=== PATIENT | female | born 1950 | race Caucasian/White ===

== ENCOUNTER 2017-01-29 15:02 | Emergency (ER) | payer OTHER, MEDICAID ==
[~2017-01-29] VITALS: Wt 47.9 kg
[~2017-01-29 15:02] MED LIST: AMPH30TA9 PO; CYCL-319 PO; HYDR-762 PO; HYDR25TA6 PO; LISI40TA PO
[2017-01-29] MEDS ORDERED: LORAZEPAM 1 MG TAB PO ONE (15:30)
[2017-01-29] MEDS ORDERED: BENA20TA48 PO (16:05)
[2017-01-29] MEDS ORDERED: METO-319 PO (16:05)
--- NOTE | 2017-01-29 16:15 | ERD ---
ER Documentation Chief Complaint Chief Complaint LAST ETOH THIS AM. FEELING SICK AND SHAKEY NO SEIZURE NOTED. ETOH DAILY HPI Patient is a 66-year-old female with alcohol abuse who presents saying she is "detoxing". The patient said that her last alcohol was this morning and that it was vodka and she drinks daily. She has been to the [facility] in the past. Her girlfriend called 911. Upon review of old medical records this is the patient's fourth visit to the ER. Review of the emergency department information exchange system shows visits to 3 separate emergency departments. She does not remember the name of her primary doctor. ROS All systems reviewed and are negative except as per history of present illness. Medications Home Meds Reported Medications Metoprolol Succinate* (Toprol XL*) 50 Mg Tab.er.24h, 50 MG PO DAILY, #30 TAB 01/29/17 Benazepril Hcl* (Benazepril Hcl*) 20 Mg Tablet, 20 MG PO DAILY, #30 TAB 01/29/17 Discontinued Reported Medications Amphet Kzm-Akpffz-C-Amphet (Amphetamine Salts) 30 Mg Tablet, 30 MG PO DAILY, #30 05/26/15 Hydrochlorothiazide* (Hydrochlorothiazide*) 25 Mg Tab, 25 MG PO daily 08/06/12 Lisinopril* (Prinivil*) 40 Mg Tablet, 40 MG PO daily 08/06/12 Discontinued Scripts Cyclobenzaprine Hcl* (Cyclobenzaprine Hcl*) 10 Mg Tablet, 10 MG PO TID, #20 TAB Prov:DARIEL NAIDU PA-C 03/08/15 Hydrocodone Bit-Acetaminophen* ([place]*) 10-325 Mg Tablet, 1 TAB PO Q6 Y for PAIN , #15 TAB Prov:DARIEL NAIDU PA-C 03/08/15 Allergies Allergies: Coded Allergies: No Known Allergy (Unverified , 01/29/17) PMhx/Soc History of Surgery: Yes (ulcers) Hx Cardiac Disorders: Yes (htn) Hx Alcohol Use: Yes (ADMITS TO ALCHOLISM; LAST DRINK THIS MORNING) Hx Substance Use: No Hx Tobacco Use: No Smoking Status: Current every day smoker FmHx Family History: No diabetes Physical Exam Vitals Vital Signs Date Time Temp Pulse Resp B/P Pulse Ox O2 Delivery O2 Flow Rate FiO2 01/29/17 15:07 98.2 115 20 160/91 98 Physical Exam Const: Moderate distress Head: Atraumatic Eyes: Normal Conjunctiva ENT: Normal External Ears, Nose and Mouth. Neck: Full range of motion..~ No meningismus. Resp: Clear to auscultation bilaterally Cardio: Regular rate and rhythm, no murmurs Abd: Soft, non tender, non distended. Normal bowel sounds Skin: No petechiae or rashes Back: No midline or flank tenderness Ext: No cyanosis, or edema Neur: Awake and alert but anxious Psych: Anxious Results 24 hrs Laboratory Tests Test 01/29/17 15:13 Bedside Glucose 92mg/dL Current Medications Medications (Trade) Dose Ordered Sig/Bre Route PRN Reason Start Time Stop Time Status Last Admin Dose Admin Lorazepam (Ativan) 2 mg ONCE ONCE PO 01/29/17 15:30 01/29/17 15:31 DC 01/29/17 15:21 Procedures/MDM EKG read by me: Rate/Rhythm: Sinus tachycardia at a rate of 104 Intervals: Normal Impression: Sinus tachycardia without ischemia Accu-Chek is normal. Patient is a 66-year-old female with alcohol abuse who presents saying she is detoxing. At this point I do not believe she is in acute delirium tremens. She was given Ativan by mouth and she feels better. I did believe that outpatient management is appropriate and we do not currently have inpatient detox available here at the hospital. I will discharge her with a list of the local detox facilities. She can return for any worsening symptoms. The patient understands the plan and is okay for discharge at this time. Departure Diagnosis: Primary Impression: Alcohol withdrawal Complication of substance-induced condition: uncomplicated Qualified Code: F10.230 - Alcohol withdrawal syndrome without complication Additional Impression: Episode of shaking Condition: Fair Patient Instructions: Alcohol Withdrawal Referrals: ALMITA LYLES MD (PCP) Detox facilities Additional Instructions: Call your primary care doctor TOMORROW for an appointment during the next 1-2 days.See the doctor sooner or return here if your condition worsens before your appointment time. AUSTIN CHAPARRO MD Jan 29, 2017 16:15
== END 2017-01-29 16:27 | disposition home or self-care (01) ==
LOC: E/R 15:02
DX: F10.230 Alcohol dependence with withdrawal, uncomplicated (principal); I10 Essential (primary) hypertension; F17.210 Nicotine dependence, cigarettes, uncomplicated; R25.1 Tremor, unspecified
CPT/HCPCS: 82962; 93005

== ENCOUNTER 2017-02-04 16:11 | Inpatient (IN) | payer OTHER ==
[~2017-02-04] VITALS: Ht 152.4 cm; Wt 53.5 kg
[~2017-02-04 16:11] MED LIST changes: -AMPH30TA9 PO; +BENA20TA48 PO; -CYCL-319 PO; -HYDR-762 PO; -HYDR25TA6 PO; -LISI40TA PO; +METO-319 PO
[2017-02-04] MEDS ORDERED: CEFEPIME 2GM/50 ML (PMX) 50 ML IVPB STA (16:26)
[2017-02-04] MEDS ORDERED: HYDROmorphONE 1 MG/ML SYG IV STA (16:26)
[2017-02-04] MEDS ORDERED: SOD CHLORIDE 0.9% 1,000 ML IV STA (16:26)
[2017-02-04] MEDS ORDERED: ONDANSETRON 4 MG INJ IV STA (16:26)
[2017-02-04] MEDS ORDERED: VANCOMYCIN 1 GM (PMX) 250 ML IVPB ONE (16:30)
--- NOTE | 2017-02-04 16:33 | ERD ---
ER Documentation Chief Complaint Chief Complaint right leg, below david pain HPI This is a 66-year-old alcoholic. She is here for pain and swelling and redness in her right leg. The patient states on Monday, 4 days ago, she tried to flick off a spider that had bitten her just below her knee and when she did this she twisted her right ankle. She says since that time she has been unable to bear weight on her right leg is gotten more red and swollen over the past 4 days. She did not hit her head although she has a bruise under her right eye she says that is from a fall 3-4 weeks ago. She is not having any headaches no neck pain does not know if she has had a fever but no chills. She has pain in the right ankle mostly and also pain in the right leg below the knee. There is redness and swelling no dyspnea or shortness of breath. Patient says she has been getting around her apartment by crawling ROS All systems reviewed and are negative except as per history of present illness. Medications Home Meds Reported Medications Metoprolol Succinate* (Toprol XL*) 50 Mg Tab.er.24h, 50 MG PO DAILY, #30 TAB 01/29/17 Benazepril Hcl* (Benazepril Hcl*) 20 Mg Tablet, 20 MG PO DAILY, #30 TAB 01/29/17 Discontinued Reported Medications Amphet Ibr-Evlsnb-Y-Amphet (Amphetamine Salts) 30 Mg Tablet, 30 MG PO DAILY, #30 05/26/15 Hydrochlorothiazide* (Hydrochlorothiazide*) 25 Mg Tab, 25 MG PO daily 08/06/12 Lisinopril* (Prinivil*) 40 Mg Tablet, 40 MG PO daily 08/06/12 Discontinued Scripts Cyclobenzaprine Hcl* (Cyclobenzaprine Hcl*) 10 Mg Tablet, 10 MG PO TID, #20 TAB Prov:DARIEL NAIDU PA-C 03/08/15 Hydrocodone Bit-Acetaminophen* ([place]*) 10-325 Mg Tablet, 1 TAB PO Q6 Y for PAIN , #15 TAB Prov:DARIEL NAIDU PA-C 03/08/15 Allergies Allergies: Coded Allergies: No Known Allergy (Unverified , 02/04/17) PMhx/Soc History of Surgery: Yes (ulcers) Hx Cardiac Disorders: Yes (htn) Hx Miscellaneous Medical Probl: Yes (alcoholic) Hx Alcohol Use: Yes (ADMITS TO ALCHOLISM; LAST DRINK THIS MORNING) Hx Substance Use: No Hx Tobacco Use: No Smoking Status: Never smoker FmHx Family History: No coronary disease Physical Exam Vitals Vital Signs Date Time Temp Pulse Resp B/P Pulse Ox O2 Delivery O2 Flow Rate FiO2 02/04/17 18:38 98.1 99 18 113/75 96 Room Air 2.0 Nasal Cannula 02/04/17 18:03 101 18 99/69 99 Nasal Cannula 2.0 02/04/17 16:23 98.1 115 18 114/56 99 Physical Exam Const: Well-developed, well-nourished Head: Atraumatic, normocephalic Eyes: Normal Conjunctiva, PERRLA, EOMI, normal sclera, no nystagmus, small linear bruise underneath the right eye no swelling ENT: Normal External Ears, Nose and Mouth, moist mucus membranes. Neck: Full range of motion. No meningismus, no lymphadenopathy. Resp: Clear to auscultation bilaterally, no wheezing, rhonchi, rales Cardio: Regular rate and rhythm, no murmurs, S1 S2 present Abd: Soft, non tender x 4, non distended. Normal bowel sounds, no guarding or rebound, no pulsitile abdominal masses or bruits Skin: [There is redness to the entire leg below the knee there is some redness to the distal thigh with sharp demarcation, there is a irregular area or the spider possibly better with a scab at the area just below the knee Back: No midline or flank tenderness Ext: No cyanosis, edema to the leg below the right knee, FROM x 4, normal inspection, neurovascularly intact x 4, the right ankle has no strength at all and on passive movement and has complete instability Neur: Awake and alert, STR 5/5 x 4, sensation intact x 4, no focal findings, cerebellum intact Psych: Normal Mood and Affect Result Diagram: 02/04/17 1625 02/04/17 1625 Results 24 hrs Laboratory Tests Test 02/04/17 16:25 White Blood Count 5.810^3/ul Red Blood Count 2.3410^6/ul Hemoglobin 7.5g/dl Hematocrit 22.8% Mean Corpuscular Volume 97.4fl Mean Corpuscular Hemoglobin 32.1pg Mean Corpuscular Hemoglobin Concent 32.9g/dl Red Cell Distribution Width 15.7% Platelet Count 00932^3/UL Mean Platelet Volume 12.0fl Neutrophils % % Segmented Neutrophils % (Manual) 52% Band Neutrophils % (Manual) 7% Lymphocytes % % Lymphocytes % (Manual) 30% Reactive Lymphocytes % (Manual) 2% Monocytes % % Monocytes % (Manual) 9% Eosinophils % % Basophils % % Nucleated Red Blood Cells % 0.0/100WBC Neutrophils # 10^3/ul Neutrophils # (Manual) 3.010^3/ul Band Neutrophils # 0.410^3/ul Absolute Lymphocytes (Manual) 1.710^3/ul Lymphocytes # 10^3/ul Reactive Lymphocytes # 0.110^3/ul Monocytes # 10^3/ul Absolute Monocytes (Manual) 0.510^3/ul Eosinophils # 10^3/ul Basophils # 10^3/ul Nucleated Red Blood Cells # 10^3/ul Platelet Estimate NORMAL Giant Platelets 1% Prothrombin Time 13.4Sec Prothrombin Time Ratio 1.0 INR International Normalized Ratio 1.02 Activated Partial Thromboplast Time 32.4Sec Sodium Level 138mmol/L Potassium Level 3.7mmol/L Chloride Level 108mmol/L Carbon Dioxide Level 17mmol/L Anion Gap 17 Blood Urea Nitrogen 49mg/dl Creatinine 2.04mg/dl Glucose Level 110mg/dl Calcium Level 8.8mg/dl Total Bilirubin 0.1mg/dl Direct Bilirubin 0.00mg/dl Indirect Bilirubin 0.1mg/dl Aspartate Amino Transf (AST/SGOT) 63IU/L Alanine Aminotransferase (ALT/SGPT) 44IU/L Alkaline Phosphatase 104IU/L Troponin I 0.028ng/ml Total Protein 6.7g/dl Albumin 3.3g/dl Globulin 3.40g/dl Albumin/Globulin Ratio 0.97 Current Medications Medications (Trade) Dose Ordered Sig/Bre Route PRN Reason Start Time Stop Time Status Last Admin Dose Admin Cefepime HCl 50 ml @ 100 mls/hr ONCE STAT IVPB 02/04/17 16:26 02/04/17 16:55 DC Vancomycin HCl 250 ml @ 125 mls/hr ONCE ONCE IVPB 02/04/17 16:30 02/04/17 18:29 DC 02/04/17 16:42 Sodium Chloride (NS) 1,000 ml @ 1,000 mls/hr Q1H STAT IV 02/04/17 16:26 02/04/17 17:25 DC 02/04/17 17:05 Hydromorphone HCl (Dilaudid) 1 mg ONCE STAT IV 02/04/17 16:26 02/04/17 16:30 DC 02/04/17 17:05 Ondansetron HCl 4 mg 4 mg ONCE STAT IV 02/04/17 16:26 02/04/17 16:30 DC 02/04/17 17:04 Sodium Chloride (NS) 1,000 ml @ 80 mls/hr [id number] IV 02/04/17 18:40 02/05/17 07:09 Ondansetron HCl (Zofran Inj) 4 mg BRIDGE ORDER PRN IV NAUSEA AND/OR VOMITING 02/04/17 19:00 02/05/17 18:59 Acetaminophen (Tylenol Tab) 650 mg ER BRIDGE PRN PO MILD PAIN/FEVER 02/04/17 19:00 02/05/17 18:59 Procedures/MDM PROCEDURE: XR Ankle. CLINICAL INDICATION: 66-year of age, female. Trauma.. TECHNIQUE: Three views of the right ankle. COMPARISON: None available. FINDINGS: There is an acute comminuted obliquely oriented fracture of the distal fibula that likely involves the distal tibiofibular syndesmosis. Fracture is displaced posterior greater than a full shaft width. There is a comminuted fracture of the midshaft of the tibia with posterior displacement full shaft width.. Alignment of the ankle mortise is anatomic. There is a contour irregularity of the lateral talar dome and there is a bone fragment at the lateral aspect of the talus that may signify talar fracture. Evaluation is limited on x-ray. There is extensive soft tissue swelling. There is calcific debris over the lateral malleolus representing bone fragments.. IMPRESSION: 1. Mild contour irregularity of the lateral talar dome and bone fragment at the lateral aspect of the talus may be due to a talar fracture that is not well evaluated on x-ray. Recommend further evaluation with ankle CT. 2. Oblique comminuted fractures of the distal fibula and mid tibial shaft. Distal fibular fracture likely involves the distal tibiofibular syndesmosis. RPTAT: HCTS Physician Grant Date Time Electronically viewed and signed by Physician Grant on 02/04/2017 18: 03 CS/ CC: BRIANNE CYR DO PROCEDURE: Portable chest x-ray. CLINICAL INDICATION: 66-year of age, female. Possible sepsis. TECHNIQUE: Portable AP view of the chest. COMPARISON: None available. FINDINGS: Tortuous aorta. Normal heart size. Prominent interstitial markings may indicate mild pulmonary venous congestion. Lungs are otherwise clear. Negative for pleural effusion or pneumothorax. Curvature of the lower thoracic spine convex left. IMPRESSION: Prominent interstitial markings may indicate mild pulmonary venous congestion. Lungs are otherwise clear. RPTAT: HCTS Physician Grant Date Time Electronically viewed and signed by Physician Grant on 02/04/2017 18: 06 CS/ CC: BRIANNE CYR DO PROCEDURE: XR Knee. CLINICAL INDICATION: 66 years of age, female. Right knee pain. TECHNIQUE: 2 views of the right knee. COMPARISON: None available. FINDINGS: Negative for evidence of acute fracture at the knee. Fractures of the midshaft of the tibia and fibula are incompletely imaged. Normal alignment. There is mild tricompartment osteoarthritis with joint space narrowing and osteophytes in all 3 compartments. There is a small knee joint effusion. There is soft tissue swelling that is greatest over the lateral aspect of the knee. IMPRESSION: Negative for evidence of acute fracture at the knee. Fractures of the mid shafts of the tibia and fibula are incompletely imaged. Please see tib fib x- rays reported separately. Mild tricompartment osteoarthritis with small knee joint effusion. RPTAT: HCTS Physician Grant Date Time Electronically viewed and signed by Physician Grant on 02/04/2017 17: 59 CS/ CC: BRIANNE CYR DO PROCEDURE: XR Tibia and Fibula. CLINICAL INDICATION: 66-year of age, female. Pain. Trauma. TECHNIQUE: AP and lateral views of the right tibia and fibula. COMPARISON: None available. FINDINGS: There is an acute obliquely oriented fracture of the mid tibial shaft with posterior displacement 1/2 shaft width and mild varus angulation. There is a comminuted obliquely oriented fracture of the distal fibula with medial and posterior displacement a full shaft width.. Please see knee and ankle x-rays reported separately. There is soft tissue swelling. IMPRESSION: Displaced fractures of the tibia and fibula as described. RPTAT: HCTS Physician Grant Date Time Electronically viewed and signed by Physician Grant on 02/04/2017 18: 05 CS/ CC: BRIANNE CYR DO PROCEDURE: US Lower extremity Venous. CLINICAL INDICATION: Right leg edema TECHNIQUE: Multiple sonographic images of the right lower extremity deep venous system was obtained utilizing grayscale, color-flow, compressive sonography and doppler imaging with augmentation. The images were reviewed on a PACS workstation. COMPARISON: None. FINDINGS: There is normal compressibility and flow within the right common femoral, femoral, posterior tibial, peroneal and popliteal veins. RPTAT: AA IMPRESSION: No sonographic evidence for deep venous thrombosis. .Mulugeta Lentz MD, Date Time Electronically viewed and signed by .Mulugeta Lentz MD, on 02/04/2017 17: 00 .S/ CC: BRIANNE CYR DO Spoke with Dr. Edmondson of orthopedics who will be consulting on the case. We will admit the patient for cellulitis of the right leg with a tib-fib fracture with anemia requiring blood transfusion as well as volume depletion with acidosis and prerenal azotemia. Spoke with Dr. Mcknight of panel and reviewed the case for admission Departure Diagnosis: Primary Impression: Cellulitis of right leg Additional Impressions: Fracture of right tibia and fibula Encounter type: initial encounter Fracture type: closed Qualified Code: S82.201A - Closed fracture of right tibia and fibula, initial encounter Anemia Anemia type: unspecified type Qualified Code: D64.9 - Anemia, unspecified type Dehydration Condition: Stable BRIANNE CYR DO Feb 04, 2017 16:33
[2017-02-04 16:43] LABS: HEMATOCRIT 22.8 % (37.0-47.0); HEMOGLOBIN 7.5 g/dl (12.0-16.0); MEAN CORPUSCULAR HEMOGLOBIN 32.1 pg (29.0-33.0); MEAN CORPUSCULAR HGB CONC 32.9 g/dl (32.0-37.0); MEAN CORPUSCULAR VOLUME 97.4 fl (82.0-101.0); PLATELET COUNT 166 10^3/UL (140-415); RED BLOOD COUNT 2.34 10^6/ul (4.20-5.40); RED CELL DISTRIBUTION WIDTH 15.7 % (11.5-14.5); WHITE BLOOD COUNT 5.8 10^3/ul (4.8-10.8)
[2017-02-04 16:47] LABS: POSITIVE DIFF @See below
[2017-02-04 16:58] LABS: INR 1.02; PARTIAL THROMBOPLASTIN TIME 32.4 Sec (25.0-35.0); PROTIME 13.4 Sec (12.2-14.2)
[2017-02-04 17:00] LABS: ALBUMIN 3.3 g/dl (3.3-4.9); ALBUMIN/GLOBULIN RATIO 0.97; BILIRUBIN,INDIRECT 0.1 mg/dl (0-1.1); BILIRUBIN,TOTAL 0.1 mg/dl (0.2-1.3); CALCIUM 8.8 mg/dl (8.4-10.2); CREATININE 2.04 mg/dl (0.44-1.00); POTASSIUM 3.7 mmol/L (3.5-5.1); TOTAL PROTEIN 6.7 g/dl (6.1-8.1)
--- NOTE | 2017-02-04 17:00 | RADRPT ---
PROCEDURE: US Lower extremity Venous. CLINICAL INDICATION: Right leg edema TECHNIQUE: Multiple sonographic images of the right lower extremity deep venous system was obtaine d utilizing grayscale, color-flow, compressive sonography and doppler imaging with augmentation. Th e images were reviewed on a PACS workstation. COMPARISON: None. FINDINGS: There is normal compressibility and flow within the right common femoral, femoral, posterior tibial, peroneal and popliteal veins. RPTAT: AA IMPRESSION: No sonographic evidence for deep venous thrombosis. .Mulugeta Lentz MD, MD Date Time Electronically viewed and signed by .Mulugeta Lentz MD, MD on 02/04/2017 17:00 .S/
[2017-02-04 17:04] LABS: GIANT THROMBO% (M) 1 % (0-0); MONOCYTES % (M) 9 % (0-11); PLATELET ESTIMATE NORMAL; REACTIVE LYMPHOCYTES% (M) 2 % (0-0)
[2017-02-04 17:12] LABS: TROPONIN-I 0.028 ng/ml (0.00-0.12)
--- NOTE | 2017-02-04 18:00 | RADRPT ---
PROCEDURE: XR Knee. CLINICAL INDICATION: 66 years of age, female. Right knee pain. TECHNIQUE: 2 views of the right knee. COMPARISON: None available. FINDINGS: Negative for evidence of acute fracture at the knee. Fractures of the midshaft of the tibia and fibu la are incompletely imaged. Normal alignment. There is mild tricompartment osteoarthritis with joint space narrowing and osteophytes in all 3 comp artments. There is a small knee joint effusion. There is soft tissue swelling that is greatest over the lateral aspect of the knee. IMPRESSION: Negative for evidence of acute fracture at the knee. Fractures of the mid shafts of the tibia and fi bula are incompletely imaged. Please see tib fib x-rays reported separately. Mild tricompartment osteoarthritis with small knee joint effusion. RPTAT: HCTS Physician Grant Date Time Electronically viewed and signed by Orville Dee Physician on 02/04/2017 17:59 /
--- NOTE | 2017-02-04 18:04 | RADRPT ---
PROCEDURE: XR Ankle. CLINICAL INDICATION: 66-year of age, female. Trauma.. TECHNIQUE: Three views of the right ankle. COMPARISON: None available. FINDINGS: There is an acute comminuted obliquely oriented fracture of the distal fibula that likely involves t he distal tibiofibular syndesmosis. Fracture is displaced posterior greater than a full shaft width. There is a comminuted fracture of the midshaft of the tibia with posterior displacement full shaft width.. Alignment of the ankle mortise is anatomic. There is a contour irregularity of the lateral talar dom e and there is a bone fragment at the lateral aspect of the talus that may signify talar fracture. Evaluation is limited on x-ray. There is extensive soft tissue swelling. There is calcific debris over the lateral malleolus represe nting bone fragments.. IMPRESSION: 1. Mild contour irregularity of the lateral talar dome and bone fragment at the lateral aspect of t he talus may be due to a talar fracture that is not well evaluated on x-ray. Recommend further evalu ation with ankle CT. 2. Oblique comminuted fractures of the distal fibula and mid tibial shaft. Distal fibular fracture l ikely involves the distal tibiofibular syndesmosis. RPTAT: HCTS Physician Grant Date Time Electronically viewed and signed by Physician Grant on 02/04/2017 18:03 /
--- NOTE | 2017-02-04 18:05 | RADRPT ---
PROCEDURE: XR Tibia and Fibula. CLINICAL INDICATION: 66-year of age, female. Pain. Trauma. TECHNIQUE: AP and lateral views of the right tibia and fibula. COMPARISON: None available. FINDINGS: There is an acute obliquely oriented fracture of the mid tibial shaft with posterior displacement 1/ 2 shaft width and mild varus angulation. There is a comminuted obliquely oriented fracture of the di stal fibula with medial and posterior displacement a full shaft width.. Please see knee and ankle x-rays reported separately. There is soft tissue swelling. IMPRESSION: Displaced fractures of the tibia and fibula as described. RPTAT: HCTS Physician Grant Date Time Electronically viewed and signed by Physician Grant on 02/04/2017 18:05 /
--- NOTE | 2017-02-04 18:07 | RADRPT ---
PROCEDURE: Portable chest x-ray. CLINICAL INDICATION: 66-year of age, female. Possible sepsis. TECHNIQUE: Portable AP view of the chest. COMPARISON: None available. FINDINGS: Tortuous aorta. Normal heart size. Prominent interstitial markings may indicate mild pulmonary venous congestion. Lungs are otherwise c lear. Negative for pleural effusion or pneumothorax. Curvature of the lower thoracic spine convex left. IMPRESSION: Prominent interstitial markings may indicate mild pulmonary venous congestion. Lungs are otherwise c lear. RPTAT: HCTS Physician Grant Date Time Electronically viewed and signed by Orville Dee Physician on 02/04/2017 18:06 CS/
[2017-02-04] MEDS ORDERED: SOD CHLORIDE 0.9% 1,000 ML IV SCH (18:40)
[2017-02-04] MEDS ORDERED: ONDANSETRON 4 MG INJ IV PRN ×2 (19:00→22:00)
[2017-02-04] MEDS ORDERED: ACETAMINOPHEN 325 MG TAB PO PRN (19:00)
[2017-02-04 19:31] VITALS: TEMP 98.1
[2017-02-04 20:35] VITALS: BP 107/59; RESP 19
[2017-02-04] MEDS: SOD CHLORIDE 0.9% 1,000 ML IV SCH (21:32)
[2017-02-04 21:44] VITALS: Ht 152.4 cm; Wt 53.5 kg
[2017-02-04 21:56] VITALS: BP 101/59; PULSE 115; RESP 19
[2017-02-04] MEDS ORDERED: VANCOMYCIN IV PER PHARMACY XX SCH (22:00)
[2017-02-04] MEDS: morphine 2 MG INJ IV PRN (22:27)
[2017-02-05 02:16] VITALS: BP 96/53; RESP 18
[2017-02-05] MEDS: morphine 2 MG INJ IV PRN ×4 (02:35→18:04)
[2017-02-05] MEDS: ZOLPIDEM 5 MG TAB PO PRN (05:29)
[2017-02-05] MEDS: ACETAMINOPHEN 325 MG TAB PO PRN (06:29)
[2017-02-05 07:43] LABS: BASOPHILS % 0.2 % (0.0-2.0); EOSINOPHILS # 0.1 10^3/ul (0.0-0.5); EOSINOPHILS % 2.5 % (0.0-7.0); HEMATOCRIT 29.4 % (37.0-47.0); HEMOGLOBIN 10.1 g/dl (12.0-16.0); LYMPHOCYTES # 0.8 10^3/ul (0.8-2.9); LYMPHOCYTES % 17.4 % (15.0-51.0); MEAN CORPUSCULAR HEMOGLOBIN 32.2 pg (29.0-33.0); MEAN CORPUSCULAR HGB CONC 34.4 g/dl (32.0-37.0); MEAN CORPUSCULAR VOLUME 93.6 fl (82.0-101.0); MEAN PLATELET VOLUME 11.9 fl (7.4-10.4); MONOCYTE # 0.7 10^3/ul (0.3-0.9); NEUTROPHIL # 2.8 10^3/ul (1.6-7.5); NEUTROPHILS % 64.4 % (39.0-77.0); PLATELET COUNT 178 10^3/UL (140-415); RED BLOOD COUNT 3.14 10^6/ul (4.20-5.40); RED CELL DISTRIBUTION WIDTH 16.1 % (11.5-14.5); WHITE BLOOD COUNT 4.3 10^3/ul (4.8-10.8)
[2017-02-05 07:46] LABS: POSITIVE DIFF @See below
[2017-02-05 07:57] VITALS: BP 140/66; RESP 17
[2017-02-05 07:59] LABS: IRON 30 ug/dl (35-150)
[2017-02-05 08:01] LABS: ALBUMIN 2.9 g/dl (3.3-4.9); ALBUMIN/GLOBULIN RATIO 1.03; BILIRUBIN,INDIRECT 0.5 mg/dl (0-1.1); BILIRUBIN,TOTAL 0.5 mg/dl (0.2-1.3); CALCIUM 7.8 mg/dl (8.4-10.2); CHOL/HDL RATIO 4.9 RATIO; CREATININE 1.5 mg/dl (0.44-1.00); MAGNESIUM 1.6 mg/dl (1.7-2.5); POTASSIUM 3.6 mmol/L (3.5-5.1); TOTAL PROTEIN 5.7 g/dl (6.1-8.1)
[2017-02-05 08:09] LABS: TOTAL IRON BINDING CAPACITY 194 ug/dl (241-421)
[2017-02-05 08:32] LABS: THYROID STIMULATING HORMONE 1.36 MIU/L (0.465-4.680)
[2017-02-05 08:52] LABS: ADD UMIC YES; UR ASCORBIC ACID NEGATIVE (NEGATIVE); UR BACTERIA FEW /HPF (NONE SEEN); UR BILIRUBIN (Dip) NEGATIVE (NEGATIVE); UR BLOOD (Dip) 1+ mg/dL (NEGATIVE); UR CLARITY SLIGHTLY CLOUDY (CLEAR); UR COLOR YELLOW (YELLOW); UR GLUCOSE (Dip) NEGATIVE (NEGATIVE); UR KETONES (Dip) NEGATIVE (NEGATIVE); UR LEUKOCYTE ESTERASE (Dip) NEGATIVE Leu/ul (NEGATIVE); UR NITRITE (Dip) NEGATIVE (NEGATIVE); UR RBC 3 /HPF (0-5); UR SPECIFIC GRAVITY (Dip) 1.008 (1.003-1.030); UR TOTAL PROTEIN (Dip) NEGATIVE (NEGATIVE); UR UROBILINOGEN (Dip) NEGATIVE (NEGATIVE)
[2017-02-05] MEDS ORDERED: CEFEPIME 1GM/50 ML (PMX) 50 ML IVPB SCH (09:00)
[2017-02-05] MEDS ORDERED: LORAZEPAM 2 MG INJ IV PRN (10:00)
[2017-02-05] MEDS: SOD CHLORIDE 0.9% 1,000 ML IV SCH (10:02)
--- NOTE | 2017-02-05 10:20 | HP ---
Date/Time of Note Date/Time of Note DATE: 02/05/17 TIME: 09:49 Assessment/Plan VTE Prophylaxis VTE Prophylaxis Intervention: SCD's Assessment/Plan Chief Complaint/Hosp Course This is a 58-year-old female being admitted to the [facility] floor for: #1 Acute fractures of the right tibial and fibula: At the current time keep right lower extremity casted/wrapped. Will provide IV pain medication for pain control. Keep patient n.p.o. Will obtain an echocardiogram in the a.m. to assess heart function for preop purposes for surgery. Orthopedic surgery has been consulted via the ED. #2 Right lower semi-cellulitis: Patient reports that she noticed a spider biting her bug. At the current time I was not able to examine the site of the bite as her right lower extremity is casted/wrapped. She did show me a picture of her right lower extremity on her phone which did show extensive erythema and redness and swelling. Right now we will continue vancomycin and cefepime. Will await blood cultures. #3 normocytic anemia: Patient received 2 PRBC transfusions in the ED. Will check iron studies. Will check fecal occult blood. This also could be secondary to patient's underlying alcohol use. #4History of alcohol use: Will check ethanol level and urine drug screen. Will put as needed Ativan on board. May need Librium. #5 acute kidney injury: This likely could be prerenal in etiology secondary to mild dehydration. At the current time will provide IV fluid resuscitation with normal saline. Will continue on her renal function. May need additional workup regarding patient's renal function during the hospital stay. #6 hypertension: We will resume home medications as indicated. At the current time will hold off on them secondary to concern for hypotension #7 DVT GI prophylaxis: We will provide SCD on the left lower cavity., No GI plaques indicated at this time. Further treatment strategy will be implemented as per the clinical course Problems: HPI/ROS Admit Date/Time Admit Date/Time Feb 04, 2017 at 18:41 Hx of Present Illness Complaint: Right leg swelling and redness This is a 66-year-old alcoholic. She is here for pain and swelling and redness in her right leg. The patient states on Monday, 4 days ago, she tried to flick off a spider that had bitten her just below her knee and when she did this she twisted her right ankle. She says since that time she has been unable to bear weight on her right leg is gotten more red and swollen over the past 4 days. She did not hit her head although she has a bruise under her right eye she says that is from a fall 3-4 weeks ago. She is not having any headaches no neck pain does not know if she has had a fever but no chills. She has pain in the right ankle mostly and also pain in the right leg below the knee. There is redness and swelling no dyspnea or shortness of breath. Patient says she has been getting around her apartment by crawling. Allergies: NKDA Medications: See Jun Const: As per HPI Eyes : No pain discharge or redness or change in visual acuity ENT: No pain, sore throat, congestion, congestion, dysphagia or discharge Respiratory: No shortness of breath, cough, sputum, wheezing, or pleuritic pain Cardiovascular: No chest pain, palpitation, PND, or edema GI : no change in appetite, abdominal pain, nausea, vomiting, diarrhea, constipation, or change in the color his stool Genitourinary: No dysuria, hematuria, flank pain , discharge or CVA tenderness Musculoskeletal: As per HPI Skin: As per HPI Neuro: No headache, dizziness, syncope, seizure, focal weakness Endocrine: No polyuria, polydipsia, temperature intolerance Psych: No hallucination, depression, anxiety or suicidal ideation PMH/Family/Social Past Medical History hypertension, thyroid disorder, osteoporosis, Past Surgical History Partial thyroidectomy, stomach surgery Family History Significant Family History: hypertension Social History Alcohol Use: occasionally Smoking Status: Never smoker Drug Use: none Exam/Review of Systems Vital Signs Vitals Vital Signs Date Time Temp Pulse Resp B/P Pulse Ox O2 Delivery O2 Flow Rate FiO2 02/05/17 07:57 99.4 113 17 140/66 97 02/04/17 19:31 Room Air 2.0 Nasal Cannula Intake and Output 02/04/17 02/04/17 02/05/17 15:00 23:00 07:00 Intake Total 640 ml Balance 640 ml Exam Exam General: Patient is lying in bed in no acute distress she is very pleasant. HEENT: Atraumatic, normocephalic. The pupils are equal, round and reactive. Extraocular motor are intact Neck: Supple with full range of motion. No rigidity or meningismus Chest: Nontender Lungs: Clear to auscultation bilaterally no crackles rales or wheezing Heart: Normal S1-S2, Regular rhythm and rate. No murmur, S3, or S4 Abdomen: Soft , nontender, nondistended , bowel sounds are present. No guarding no rebound tenderness , No masses or organomegaly. No costovertebral temporal angle mass Extremities: Right lower extremity is currently currently wrapped, there is movement in the toes bilaterally. Neurologic: Normal mental status, speech normal, cranial nerves II through XII are intact, motor and sensory are intact, no focal weakness Vascular: 2+ distal pulses in bilateral lower cavities Skin: Significant portion of the right lower extremity is currently wrapped secondary to the patient's acute fracture, there does not appear to be any redness at this point at the anterior upper thigh nor at the level of the toes of the right lower extremity, sensation is intact Additional Comments PROCEDURE: XR Ankle. CLINICAL INDICATION: 66-year of age, female. Trauma.. TECHNIQUE: Three views of the right ankle. COMPARISON: None available. FINDINGS: There is an acute comminuted obliquely oriented fracture of the distal fibula that likely involves the distal tibiofibular syndesmosis. Fracture is displaced posterior greater than a full shaft width. There is a comminuted fracture of the midshaft of the tibia with posterior displacement full shaft width.. Alignment of the ankle mortise is anatomic. There is a contour irregularity of the lateral talar dome and there is a bone fragment at the lateral aspect of the talus that may signify talar fracture. Evaluation is limited on x-ray. There is extensive soft tissue swelling. There is calcific debris over the lateral malleolus representing bone fragments.. IMPRESSION: 1. Mild contour irregularity of the lateral talar dome and bone fragment at the lateral aspect of the talus may be due to a talar fracture that is not well evaluated on x-ray. Recommend further evaluation with ankle CT. 2. Oblique comminuted fractures of the distal fibula and mid tibial shaft. Distal fibular fracture likely involves the distal tibiofibular syndesmosis. RPTAT: HCTS Physician Grant Date Time Electronically viewed and signed by Physician Grant on 02/04/2017 18: 03 CS/ CC: BRIANNE CYR DO PROCEDURE: Portable chest x-ray. CLINICAL INDICATION: 66-year of age, female. Possible sepsis. TECHNIQUE: Portable AP view of the chest. COMPARISON: None available. FINDINGS: Tortuous aorta. Normal heart size. Prominent interstitial markings may indicate mild pulmonary venous congestion. Lungs are otherwise clear. Negative for pleural effusion or pneumothorax. Curvature of the lower thoracic spine convex left. IMPRESSION: Prominent interstitial markings may indicate mild pulmonary venous congestion. Lungs are otherwise clear. RPTAT: HCTS Orville Dee Physician Date Time Electronically viewed and signed by Physician Grant on 02/04/2017 18: 06 CS/ CC: BRIANNE CYR DO PROCEDURE: XR Knee. CLINICAL INDICATION: 66 years of age, female. Right knee pain. TECHNIQUE: 2 views of the right knee. COMPARISON: None available. FINDINGS: Negative for evidence of acute fracture at the knee. Fractures of the midshaft of the tibia and fibula are incompletely imaged. Normal alignment. There is mild tricompartment osteoarthritis with joint space narrowing and osteophytes in all 3 compartments. There is a small knee joint effusion. There is soft tissue swelling that is greatest over the lateral aspect of the knee. IMPRESSION: Negative for evidence of acute fracture at the knee. Fractures of the mid shafts of the tibia and fibula are incompletely imaged. Please see tib fib x- rays reported separately. Mild tricompartment osteoarthritis with small knee joint effusion. RPTAT: HCTS Physician Grant Date Time Electronically viewed and signed by Orville Dee Physician on 02/04/2017 17: 59 CS/ CC: BRIANNE CYR DO PROCEDURE: XR Tibia and Fibula. CLINICAL INDICATION: 66-year of age, female. Pain. Trauma. TECHNIQUE: AP and lateral views of the right tibia and fibula. COMPARISON: None available. FINDINGS: There is an acute obliquely oriented fracture of the mid tibial shaft with posterior displacement 1/2 shaft width and mild varus angulation. There is a comminuted obliquely oriented fracture of the distal fibula with medial and posterior displacement a full shaft width.. Please see knee and ankle x-rays reported separately. There is soft tissue swelling. IMPRESSION: Displaced fractures of the tibia and fibula as described. RPTAT: HCTS Orville Dee Physician Date Time Electronically viewed and signed by Orville Dee Physician on 02/04/2017 18: 05 CS/ CC: BRIANNE CYR DO PROCEDURE: US Lower extremity Venous. CLINICAL INDICATION: Right leg edema TECHNIQUE: Multiple sonographic images of the right lower extremity deep venous system was obtained utilizing grayscale, color-flow, compressive sonography and doppler imaging with augmentation. The images were reviewed on a PACS workstation. COMPARISON: None. FINDINGS: There is normal compressibility and flow within the right common femoral, femoral, posterior tibial, peroneal and popliteal veins. RPTAT: AA IMPRESSION: No sonographic evidence for deep venous thrombosis. .Mulugeta Lentz MD, Date Time Electronically viewed and signed by .Mulugeta Lentz MD, MD on 02/04/2017 17: 00 .S/ CC: BRIANNE CYR DO Labs Result Diagram: 02/05/17 0702/05/17 0721 Medications Medications Current Medications Sodium Chloride (NS) 1,000 ml @ 80 mls/hr [id number] IV Last administered on 02/04 21:32; Admin Dose 80 MLS/HR; Start 02/04/17 at 21:32 Ondansetron HCl (Zofran Inj) 4 mg Q6H PRN IV NAUSEA AND/OR VOMITING; Start 02/04/17 at 22:00 Acetaminophen (Tylenol Tab) 650 mg Q6H PRN PO PAIN LEVEL 1-3 OR FEVER Last administered on 02/05/17 06:29; Admin Dose 650 MG; Start 02/04/17 at 22:00 Morphine Sulfate 2 mg 2 mg Q4H PRN IV SEVERE PAIN LEVEL 7-10 Last administered on 02/05/17 06:46; Admin Dose 2 MG; Start 02/04/17 at 22:00 Vancomycin HCl/ Dextrose/Water (Vancocin/D5W) 150 ml @ 75 mls/hr Q48H IVPB ; Start 02/06/17 at 17:00 Zolpidem Tartrate 5 mg 5 mg HS PRN PO INSOMNIA Last administered on 02/05/17 05:29; Admin Dose 5 MG; Start 02/05/17 at 05:30 Cefepime HCl (Maxipime 1gm/50 ml (Pmx)) 50 ml @ 100 mls/hr DAILY IVPB Last administered on 02/05/17 08:21; Admin Dose 100 MLS/HR; Start 02/05/17 at 09:00 Miscellaneous Information Patients own medicat... BID@ XX ; Start 02/05/17 at 10:00 SHAWNEE GALVEZ Feb 05, 2017 09:59
[2017-02-05 10:59] LABS: POST-TRANSFUSION BILIRUBIN 0.4 mg/dl
[2017-02-05 13:37] VITALS: BP 146/77; PULSE 111; RESP 16
--- NOTE | 2017-02-05 14:18 | RADRPT ---
Echocardiogram Report Patient Name: MOSHE CHENEY Gender: Female Date: 1950 Study Date: 05-Feb-2017 [employer]ment: LAURA Location: 2247 Ref. Physician: SHAWNEE GALVEZ Quality: Good Procedures: Transthoracic echocardiogram with complete 2D, M-Mode, and doppler examination. Indications: Pre-op. 2D/M Mode Doppler Measurement Value Normal Ranges Measurement Value Normal Ranges AoR Diam MM 3.0 cm MAURA Vmax 2.0 cm2 ACS MM 1.8 cm MAURA VTI 2.0 cm2 LA/Ao MM 1.1 AV Peak Anthony 1.5 m/sec LA Dimen MM 3.2 cm AV Peak PG 9.5 mmHg LVIDd 2D 3.7 3.5 - 5.6 cm LVOT Peak Anthony 1.1 m/sec LVIDs 2D 2.6 2.1 - 4.1 cm LVOT Peak PG 5.2 mmHg LVPWd 2D 1.1 0.6 - 1.1 cm MV E Peak Anthony 0.9 m/sec IVSd 2D 1.1 0.6 - 1.1 cm MV A Peak Anthony 0.9 m/sec EDV 2D 59.3 cm3 MV E/A 1.0 ESV 2D 16.6 cm3 MV Decel Time 238 msec LVOT Diam 1.8 cm MV Decel [place] 4 MV E/A 1.0 Findings Left Ventricle: Normal left ventricular systolic function. Lower limits of normal systolic function. Normal left ventricular wall thickness. Ejection fraction is visually estimated at 60 %. Abnormal Diastolic Function. Right Ventricle: Normal right ventricular size. Normal right ventricular systolic function. Left Atrium: The left atrium is normal in size. Right Atrium: The right atrium is normal in size. Mitral Valve: Normal appearance of the mitral valve. Mitral valve leaflets appear mildly thickened. Mild mitral annular calcification. Trace mitral regurgitation. Aortic Valve: Normal appearance of the aortic valve. No significant aortic stenosis or insufficiency. Tricuspid Valve: Normal appearance of the tricuspid valve. Normal appearance and function of the tricuspid valve with trace physiologic regurgitation. Unable to obtain RVSP due to minimal presence of tricuspid regurgitation. Pulmonic Valve: Normal pulmonic valve appearance. There is trace pulmonic regurgitation. Pericardium: Normal pericardium with no significant pericardial effusion. Aorta: Normal aortic root. IVC: Normal size and normal respiratory collapse consistent with normal right atrial pressure. Conclusions 1.Normal left ventricular systolic function. Lower limits of normal systolic function. Normal left ventricular wall thickness. Ejection fraction is visually estimated at 60 %. Abnormal Diastolic Function. 2.Normal right ventricular size. Normal right ventricular systolic function. 3.Normal appearance of the mitral valve. Mitral valve leaflets appear mildly thickened. Mild mitral annular calcification. Trace mitral regurgitation. 4.Normal appearance of the aortic valve. No significant aortic stenosis or insufficiency. 5.Normal appearance of the tricuspid valve. Normal appearance and function of the tricuspid valve with trace physiologic regurgitation. Unable to obtain RVSP due to minimal presence of tricuspid regurgitation. 6.Normal pericardium with no significant pericardial effusion. Electronically Signed By: Toi Salazar 05-Feb-2017 14:17:44 -0800 Patient Name: MOSHE CHENEY Study Date: 05-Feb-2017 [id number]
--- NOTE | 2017-02-05 15:45 | PN ---
Date/Time of Note Date/Time of Note DATE: 02/05/17 TIME: 15:44 Assessment/Plan VTE Prophylaxis VTE Prophylaxis Intervention: LMWH Lines/Catheters IV Catheter Type (from Nrs): Peripheral IV Subjective 24 Hr Interval Summary Free Text/Dictation Dr Edmondson to operate tomorrow Patient is medically optimized for vital surgery Exam/Review of Systems Vital Signs Vitals Vital Signs Date Time Temp Pulse Resp B/P Pulse Ox O2 Delivery O2 Flow Rate FiO2 02/05/17 13:37 98.9 111 16 146/77 99 Room Air 02/04/17 19:31 2.0 Intake and Output 02/04/17 02/04/17 02/05/17 15:00 23:00 07:00 Intake Total 640 ml Balance 640 ml Results Result Diagram: 02/05/1772002/05/17720 Results 24 hrs Laboratory Tests Test 02/04/17 16:25 02/05/17 07:21 02/05/17 07:25 02/05/17 08:30 White Blood Count 5.8 # 4.3 #L Red Blood Count 2.34 #L 3.14 #L Hemoglobin 7.5 #L 10.1 #L Hematocrit 22.8 #L 29.4 #L Mean Corpuscular Volume 97.4 93.6 Mean Corpuscular Hemoglobin 32.1 32.2 Mean Corpuscular Hemoglobin Concent 32.9 34.4 Red Cell Distribution Width 15.7 H 16.1 H Platelet Count 166 178 Mean Platelet Volume 12.0 #H 11.9 H Neutrophils % 64.4 Segmented Neutrophils % (Manual) 52 Band Neutrophils % (Manual) 7 H Lymphocytes % 17.4 Lymphocytes % (Manual) 30 Reactive Lymphocytes % (Manual) 2 H Monocytes % 15.0 H Monocytes % (Manual) 9 Eosinophils % 2.5 Basophils % 0.2 Nucleated Red Blood Cells % 0.0 0.0 Neutrophils # 2.8 Neutrophils # (Manual) 3.0 Band Neutrophils # 0.4 Absolute Lymphocytes (Manual) 1.7 Lymphocytes # 0.8 Reactive Lymphocytes # 0.1 H Monocytes # 0.7 Absolute Monocytes (Manual) 0.5 Eosinophils # 0.1 Basophils # 0.0 Nucleated Red Blood Cells # 0.0 Platelet Estimate NORMAL Giant Platelets 1 H Prothrombin Time 13.4 Prothrombin Time Ratio 1.0 INR International Normalized Ratio 1.02 Activated Partial Thromboplast Time 32.4 Sodium Level 138 143 Potassium Level 3.7 3.6 Chloride Level 108 113 H Carbon Dioxide Level 17 L 18 L Anion Gap 17 H 16 Blood Urea Nitrogen 49 H 33 #H Creatinine 2.04 H 1.50 H Glucose Level 110 93 Calcium Level 8.8 7.8 L Total Bilirubin 0.1 L 0.5 Direct Bilirubin 0.00 0.00 Indirect Bilirubin 0.1 0.5 Aspartate Amino Transf (AST/SGOT) 63 H 46 Alanine Aminotransferase (ALT/SGPT) 44 34 Alkaline Phosphatase 104 90 Troponin I 0.028 Total Protein 6.7 5.7 #L Albumin 3.3 2.9 L Globulin 3.40 H 2.80 Albumin/Globulin Ratio 0.97 1.03 Hemoglobin A1c 4.8 Osmolality 294 Magnesium Level 1.6 L Ferritin 121.0 Lactate Dehydrogenase 568 Triglycerides Level 336 H Cholesterol Level 199 LDL Cholesterol, Calculated 92 HDL Cholesterol 40 Cholesterol/HDL Ratio 4.9 Thyroid Stimulating Hormone (TSH) 1.360 Ethyl Alcohol Level < 10.0 Iron Level 30 L Total Iron Binding Capacity 194 L Percent Iron Saturation 15 L Urine Color YELLOW Urine Clarity SLIGHTLY CLOUDY A Urine pH 6.0 Urine Specific [place] 1.008 Urine Ketones NEGATIVE Urine Nitrite NEGATIVE Urine Bilirubin NEGATIVE Urine Urobilinogen NEGATIVE Urine Leukocyte Esterase NEGATIVE Urine Microscopic RBC 3 Urine Microscopic WBC 3 Urine Bacteria FEW A Urine Hemoglobin 1+ H Urine Osmolality 225 L Urine Glucose NEGATIVE Urine Total Protein NEGATIVE Medications Medications Current Medications Ondansetron HCl (Zofran Inj) 4 mg Q6H PRN IV NAUSEA AND/OR VOMITING; Start 02/04/17 at 22:00 Acetaminophen (Tylenol Tab) 650 mg Q6H PRN PO PAIN LEVEL 1-3 OR FEVER Last administered on 02/05/17 06:29; Admin Dose 650 MG; Start 02/04/17 at 22:00 Morphine Sulfate (morphine) 2 mg Q4H PRN IV SEVERE PAIN LEVEL 7-10 Last administered on 02/05/17 11:44; Admin Dose 2 MG; Start 02/04/17 at 22:00 Zolpidem Tartrate (Ambien) 5 mg HS PRN PO INSOMNIA Last administered on 05:29; Admin Dose 5 MG; Start 02/05/17 at 05:30 Miscellaneous Information Patients own medicat... BID@ XX ; Start 02/05/17 at 10:00 Lorazepam 1 mg 1 mg Q4H PRN IV AGITATION/ANXIETY; Start 02/05/17 at 10:00 Cefepime HCl 50 ml @ 100 mls/hr Q12 IVPB ; Start 02/05/17 at 21:00 Vancomycin HCl/ Dextrose/Water (Vancocin/D5W) 150 ml @ 75 mls/hr Q24H IVPB ; Start 02/05/17 at 17:00 ARIANA PEACOCK MD Feb 05, 2017 15:45
--- NOTE | 2017-02-05 16:07 | RADRPT ---
PROCEDURE: Renal US. CLINICAL INDICATION: Acute kidney injury. TECHNIQUE: Multiple sonographic images of the kidneys and urinary bladder were obtained. The imag es were reviewed on a PACS workstation. COMPARISON: CT scan of the abdomen and pelvis without contrast dated 05/26/2015. FINDINGS: The right kidney measures 5.9 x 3.4 x 3.1 cm. The left kidney measures 9.8 x 5.3 x 3.3 cm. There is no renal mass. There is a hypoechoic structure posterior to the right kidney measuring 1.4 x 3.9 x 1.3 cm. The perirenal regions are otherwise unremarkable. There is no hydronephrosis. There is no renal calculus. Renal parenchymal thickness is normal bilaterally. Renal echogenicity is normal bilaterally. The urinary bladder is unremarkable with no mass or calculus. IMPRESSION: 1. Hypoechoic structure posterior to the right kidney measuring 1.4 x 3.9 x 1.3 cm[address] h CT scan should be considered to evaluate for mass. 2. Small right kidney. 3. No hydronephrosis. 4. Otherwise normal renal ultrasound. RPTAT: QQ .Diego Reddy MD, MD Date Time Electronically viewed and signed by .Diego Reddy MD, on 02/05/2017 16:07 .R/
[2017-02-05] MEDS: VANCOMYCIN 750 MG in DEXTROSE 5% 150 ML IVPB SCH (16:48)
[2017-02-05] MEDS: PANTOPRAZOLE (EC) 40 MG TAB PO SCH (18:02)
[2017-02-05 19:29] LABS: BARBITURATES Negative (NEGATIVE); BENZODIAZEPINES Negative (NEGATIVE); CANNABINOIDS Negative (NEGATIVE); COCAINE Negative (NEGATIVE); OPIATES Positive (NEGATIVE)
[2017-02-05] MEDS ORDERED: CEFEPIME 1GM/50 ML (PMX) 50 ML ONE (19:33)
[2017-02-05 20:15] VITALS: BP 132/60; RESP 18
[2017-02-05] MEDS: CEFEPIME 1GM/50 ML (PMX) 50 ML IVPB SCH (20:45)
[2017-02-06] VITALS (16 sets, daily range): BP systolic 137–172; BP diastolic 76–98; PULSE 80–94; RESP 12–22
--- NOTE | 2017-02-06 05:19 | CONS ---
DATE OF ADMISSION: 02/04/2017 DATE OF CONSULTATION: 02/05/2017 TYPE OF CONSULTATION: Orthopedic Surgery HISTORY OF PRESENT ILLNESS: The patient is a 66-year-old female with a known history of heavy drinking who was admitted through the Emergency Room on 02/04/2017 when she came to the Emergency Room complaining of pain and swelling involving her right lower extremity. According to the patient, she developed this pain and swelling about 4 days ago when she twisted her right lower extremity while she was trying to flick off the spider off of her leg. Following the incident, she was able to walk to back to her residence; however, she has not been able to be up and around ever since because of the gradually increasing pain and swelling. Following initial evaluation in the Emergency Room, in addition to all the involving the right lower extremity, the possibility of a pyogenic process was considered in addition to temporary immobilization of the right lower extremity in a splint. IV antibiotics have been started. PAST MEDICAL HISTORY: She is known to have hypertension, thyroid disorder, and osteoporosis. PAST SURGICAL HISTORY: She had a partial thyroidectomy in the past and some type of stomach surgery. PHYSICAL EXAMINATION: My examination revealed a 66-year-old female who was able to participate in the history taking and physical examination; however, I have a feeling that she is not internally open about her drinking problems. The right lower extremity was immobilized in a splint and there were no signs of any acute neurovascular compromise. RADIOLOGY: X-rays of the right lower extremity revealed an oblique fracture involving the distal shaft of the right tibia along with another oblique fracture involving the lower shaft of the right fibula. Judging from the appearance of the fracture, the fracture most probably is from a twisting force. The ankle mortise seems to be intact, without any widening of the mortise. DIAGNOSTIC IMPRESSION: Spiral fracture involving the distal shaft of the right tibia and fibula, without the involvement of ankle mortise. TREATMENT PLAN: To surgery for open reduction and internal fixation at the earliest convenience. Dictated By: In Lynn Edmondson MD /lois/javi /Document#: [id number]
[2017-02-06] MEDS: PANTOPRAZOLE (EC) 40 MG TAB PO SCH (06:34)
[2017-02-06] MEDS ORDERED: CEFAZOLIN 1 GM INJ ONE (07:00)
[2017-02-06] MEDS ORDERED: PROPOFOL 200 MG INJ ONE (07:00)
[2017-02-06] MEDS: CEFEPIME 1GM/50 ML (PMX) 50 ML IVPB SCH (09:13)
[2017-02-06] MEDS ORDERED: MAGNESIUM SULFATE 2 GM/50 ML 50 ML IVPB ONE (14:00)
[2017-02-06] MEDS: NACL 0.9% 3 ML SYG IV SCH (14:33)
[2017-02-06 15:28] LABS: CREATININE 1.26 mg/dl (0.44-1.00)
[2017-02-06] MEDS: VANCOMYCIN 750 MG in DEXTROSE 5% 150 ML IVPB SCH (15:56)
--- NOTE | 2017-02-06 16:14 | PN ---
Date/Time of Note Date/Time of Note DATE: 02/06/17 TIME: 16:06 Assessment/Plan VTE Prophylaxis VTE Prophylaxis Intervention: SCD's Lines/Catheters IV Catheter Type (from Nrsg): [place] Assessment/Plan Chief Complaint/Hosp Course #1 Acute fractures of the right tibial and fibula Plan for ORIF today #2 Right lower cellulitis: Continue vancomycin and cefepime Follow-up blood cultures #3 Normocytic anemia secondary to chronic disease and alcohol abuse Status post 2 units of PRBC Follow-up on stool occult blood #4 History of alcohol use Ativan PRN #5 Acute kidney injury secondary to dehydration-improved with IV fluids Continue IV fluids #6 Hypertension Resume home meds as able Prophylaxis: SCDs Problems: Subjective 24 Hr Interval Summary Constitutional: no complaints Exam/Review of Systems Vital Signs Vitals Vital Signs Date Time Temp Pulse Resp B/P Pulse Ox O2 Delivery O2 Flow Rate FiO2 02/06/17 14:30 98.0 101 16 145/90 97 02/05/17 13:37 Room Air 02/04/17 19:31 2.0 Intake and Output 02/05/17 02/05/17 02/06/17 15:00 23:00 07:00 Intake Total 410 ml 1400 ml 480 ml Balance 410 ml 1400 ml 480 ml Exam Constitutional: alert, oriented Respiratory: clear to auscultation Cardiovascular: regular rate and rhythm Gastrointestinal: soft, No distended Musculoskeletal: nl extremities to inspection Results Result Diagram: 02/05/17 0721 02/06/17 1405 Results 24 hrs Laboratory Tests Test 02/06/17 05:19 02/06/17 14:05 Lab Scanned Report BLOOD TRANSFUSION Blood Urea Nitrogen 21 #H Creatinine 1.26 H Medications Medications Current Medications Ondansetron HCl (Zofran Inj) 4 mg Q6H PRN IV NAUSEA AND/OR VOMITING; Start 02/04/17 at 22:00 Acetaminophen (Tylenol Tab) 650 mg Q6H PRN PO PAIN LEVEL 1-3 OR FEVER Last administered on 02/05/17 06:29; Admin Dose 650 MG; Start 02/04/17 at 22:00 Morphine Sulfate (morphine) 2 mg Q4H PRN IV SEVERE PAIN LEVEL 7-10 Last administered on 02/05/17 18:04; Admin Dose 2 MG; Start 02/04/17 at 22:00 Zolpidem Tartrate (Ambien) 5 mg HS PRN PO INSOMNIA Last administered on 05:29; Admin Dose 5 MG; Start 02/05/17 at 05:30 Miscellaneous Information Patients own medicat... BID@10,16 XX ; Start 02/05/17 at 10:00 Lorazepam 1 mg 1 mg Q4H PRN IV AGITATION/ANXIETY Last administered on 14:32; Admin Dose 1 MG; Start 02/05/17 at 10:00 Cefepime HCl 50 ml @ 100 mls/hr Q12 IVPB Last administered on 02/06/17 09:13 ; Admin Dose 100 MLS/HR; Start 02/05/17 at 21:00 Vancomycin HCl/ Dextrose/Water (Vancocin/D5W) 150 ml @ 75 mls/hr Q24H IVPB Last administered on 02/06/17 15:56; Admin Dose 75 MLS/HR; Start 02/05/17 at 17 :00 Pantoprazole (Protonix Tab) 40 mg DAILY@06 PO Last administered on 02/06/17 06 :34; Admin Dose 40 MG; Start 02/05/17 at 16:00 CONSUELO MORRIS Feb 06, 2017 16:14
[2017-02-06] MEDS: SOD CHLORIDE 0.45% 1,000 ML IV SCH (16:30)
[2017-02-06] MEDS ORDERED: VANCOMYCIN 750 MG in DEXTROSE 5% 150 ML IVPB SCH (17:00)
[2017-02-06] MEDS ORDERED: morphine SULFATE/PF (10 MG/10 ML) INJ ONE (19:35)
[2017-02-06] MEDS ORDERED: MIDAZOLAM 1 MG/ML 2 ML INJ ONE (19:56)
[2017-02-06] MEDS ORDERED: ONDANSETRON 4 MG INJ ONE (19:58)
[2017-02-06] MEDS ORDERED: MEPERIDINE 25 MG INJ IV PRN (23:00)
[2017-02-06] MEDS ORDERED: EPHEDrine SULFATE 50 MG/5 ML SYG IV PRN (23:00)
[2017-02-06] MEDS ORDERED: MIDAZOLAM 1 MG/ML 2 ML INJ IV PRN (23:00)
[2017-02-06] MEDS ORDERED: LABETALOL HCL 20MG INJ IV PRN (23:00)
[2017-02-06] MEDS ORDERED: ONDANSETRON 4 MG INJ IV PRN ×2 (23:00)
[2017-02-06] MEDS ORDERED: morphine 2 MG INJ IV PRN (23:00)
[2017-02-06] MEDS ORDERED: ALBUTEROL 0.083% (NEB) 2.5 MG/3 ML AMP HHN PRN (23:00)
[2017-02-06] MEDS ORDERED: DIPHENHYDRAMINE 50 MG INJ IV PRN ×2 (23:00)
[2017-02-06] MEDS ORDERED: OXYCODONE/ACETAMINOPHEN (5/325) TAB PO PRN ×2 (23:00)
[2017-02-06] MEDS ORDERED: IPRATROPIUM (NEB) 0.5 MG/2.5 ML AMP HHN PRN (23:00)
[2017-02-06] MEDS ORDERED: NALOXONE (0.4 MG/ML) INJ IV PRN (23:00)
[2017-02-06] MEDS ORDERED: TRIMETHOBENZAMIDE 100 MG/ML VIAL IM PRN ×2 (23:00)
[2017-02-06] MEDS ORDERED: hydrALAzine 20 MG INJ IV PRN (23:00)
[2017-02-06] MEDS ORDERED: HYDROmorphONE (0.2 MG/ML) 10ML SYG IV PRN ×3 (23:00)
[2017-02-06] MEDS ORDERED: NALBUPHINE HCL (10 MG/1 ML) INJ IV PRN (23:00)
[2017-02-06] MEDS ORDERED: FENTAnyl 50 MCG/ML VIAL IV PRN ×3 (23:00)
--- NOTE | 2017-02-06 23:02 | RADRPT ---
PROCEDURE: XR Tibia and Fibula. CLINICAL INDICATION: Postoperative evaluation TECHNIQUE: AP and lateral of the right tibia and fibula were obtained. COMPARISON: 02/04/2017 FINDINGS: The interval open reduction internal fixation with placement of a intramedullary david through the pre viously seen tibia fracture. The david is stabilized by a solitary proximal and distal screws. The fra cture fragments of the right tibia are satisfactory alignment. There has been reduction displacement and angulation of the distal fibular diaphyseal fracture compared to the preoperative exam, the fra gments in satisfactory alignment. The knee and ankle joints are normally aligned. Mild diffuse soft tissue swelling is present with lupe overlying the location of the proximal greater than distal t ibia. RPTAT:HJJR IMPRESSION: 1. Successful interval open reduction internal intramedullary david and screw fixation through the pre viously seen spiral fracture of the right tibia shaft, the fracture fragments in satisfactory alignm ent. 2. Interval reduction and displacement of the distal right fibular diaphyseal fracture, the fragmen ts now in satisfactory alignment. Physician Jer Date Time Electronically viewed and signed by Physician Jer on 02/06/2017 23:02 /
[2017-02-06] MEDS ORDERED: morphine 4 MG/ML VIAL IV PRN (23:30)
[2017-02-07] MEDS: hydrALAzine 20 MG INJ IV PRN (00:14)
[2017-02-07] MEDS: ACETAMINOPHEN 325 MG TAB PO PRN ×2 (00:18→07:45)
[2017-02-07] MEDS: CEFAZOLIN 1 GM/50 ML (PMX) 50 ML IVPB SCH ×3 (00:18→15:40)
[2017-02-07] MEDS: DEXTROSE 5%-0.45% NACL 1,000 ML IV SCH ×3 (00:19→20:49)
[2017-02-07] MEDS: HYDROCODONE/APAP (5/325) TAB PO PRN (02:26)
[2017-02-07 02:47] VITALS: BP 139/74; RESP 18
[2017-02-07 03:48] LABS: ADD UMIC YES; UR ASCORBIC ACID NEGATIVE (NEGATIVE); UR BILIRUBIN (Dip) NEGATIVE (NEGATIVE); UR BLOOD (Dip) 1+ mg/dL (NEGATIVE); UR CLARITY CLEAR (CLEAR); UR COLOR YELLOW (YELLOW); UR GLUCOSE (Dip) NEGATIVE (NEGATIVE); UR KETONES (Dip) NEGATIVE (NEGATIVE); UR LEUKOCYTE ESTERASE (Dip) NEGATIVE Leu/ul (NEGATIVE); UR NITRITE (Dip) NEGATIVE (NEGATIVE); UR RBC 5 /HPF (0-5); UR SPECIFIC GRAVITY (Dip) 1.012 (1.003-1.030); UR TOTAL PROTEIN (Dip) 1+ mg/dl (NEGATIVE); UR UROBILINOGEN (Dip) NEGATIVE (NEGATIVE)
--- NOTE | 2017-02-07 04:03 | OPR ---
DATE OF OPERATION: 02/06/2017 PREOPERATIVE DIAGNOSIS: Fracture involving the distal shaft of the tibia and fibula of the right leg. POSTOPERATIVE DIAGNOSIS: Fracture involving the distal shaft of the tibia and fibula of the right leg. OPERATION PERFORMED: Open reduction and internal fixation of the spiral fracture of the distal shaft of the right tibia by IM nailing. ANESTHESIA: Spinal anesthesia combined with the IV sedation. SURGEON: In Lynn Edmondson MD. OPERATIVE PROCEDURE: Under spinal anesthesia combined with IV sedation, the patient was placed in supine position upon the operating table. A tourniquet was placed over the proximal portion of the right thigh and was inflated up to 300 mmHg prior to the procedure. Usual prep and drape were done exposing the right leg. A small longitudinal incision was made over the anterior aspect of the proximal portion of the right leg and the incision was further carried out exposing the proximal lateral aspect of the upper end of the tibia using . The proximal intramedullary canal of the tibia was entered and the reamer guide was introduced into the intramedullary canal. With the aid of the reduction guide, the alignment was improved and intramedullary reamer guide was introduced into the fracture area and threaded down to the distal segment. After confirming satisfactory position of the reamer guide, and after confirming satisfactory alignment of the fracture, reaming was carried out up to 11.5 mm, and the selected intramedullary david in the size of 22 cm x 10 mm was inserted. After confirming satisfactory position of the intramedullary david and satisfactory alignment of the fracture, the reamer guide was removed and the intramedullary david was further stabilized by inserting the proximal locking screw and distal locking screws. With the reduction and internal fixation of the tibial fracture, the fracture involving the distal shaft of the fibula lined up in an acceptable alignment. After irrigation and hemostasis, closure of the incision was carried out using 0 Vicryl for muscle and fascia and 2-0 Vicryl for subcutaneous tissues. Final skin closure was carried out with skin lupe. Mayo-type of pressure dressings were applied to reduce edema and also offer additional support and protection. TOURNIQUET TIME: 1 hour. ESTIMATED BLOOD LOSS: About 50 mL. Dictated By: In Lynn Edmondson MD /lois/darci /Document#: [id number]
[2017-02-07 04:15] VITALS: BP 118/70; PULSE 110
[2017-02-07] MEDS: HYDROmorphONE 1 MG/ML SYG IV PRN (04:17)
--- NOTE | 2017-02-07 04:20 | RADRPT ---
PROCEDURE: Fluoroscopy services. CLINICAL INDICATION: Fractures of the mid right tibia and distal fibula. TECHNIQUE: Fluoroscopy services during reduction and placement of intramedullary david fixation for f racture of the right tibia. COMPARISON: Plain film examination of the right leg dated 02/04/2017. FINDINGS: Fluoroscopy services during reduction and placement of intramedullary david fixation for fracture of t he right tibia. Multiple intraoperative spot films were obtained at intermediate stages during this procedure and demonstrate reduction of previously seen oblique fracture of the right tibia with plac ement of new antegrade intramedullary david fixation. 171.6 seconds of fluoroscopy time were employed during this procedure. IMPRESSION: Fluoroscopy services during reduction and placement of intramedullary david fixation for fracture of t he right tibia. RPTAT: [facility] Physician Eileen Date Time Electronically viewed and signed by Physician Eileen on 02/07/2017 04:19 RS/
[2017-02-07 05:17] LABS: BASOPHILS % 0.3 % (0.0-2.0); EOSINOPHILS # 0.1 10^3/ul (0.0-0.5); EOSINOPHILS % 1.5 % (0.0-7.0); HEMATOCRIT 28.6 % (37.0-47.0); HEMOGLOBIN 9.2 g/dl (12.0-16.0); LYMPHOCYTES % 16.9 % (15.0-51.0); MEAN CORPUSCULAR HEMOGLOBIN 30.7 pg (29.0-33.0); MEAN CORPUSCULAR HGB CONC 32.2 g/dl (32.0-37.0); MEAN CORPUSCULAR VOLUME 95.3 fl (82.0-101.0); MEAN PLATELET VOLUME 10.6 fl (7.4-10.4); MONOCYTE # 0.9 10^3/ul (0.3-0.9); MONOCYTES % 14.7 % (0.0-11.0); NEUTROPHIL # 3.8 10^3/ul (1.6-7.5); NEUTROPHILS % 64.6 % (39.0-77.0); PLATELET COUNT 273 10^3/UL (140-415); RED CELL DISTRIBUTION WIDTH 17.5 % (11.5-14.5); WHITE BLOOD COUNT 5.9 10^3/ul (4.8-10.8)
[2017-02-07] MEDS: PANTOPRAZOLE (EC) 40 MG TAB PO SCH (05:36)
[2017-02-07 05:43] LABS: CALCIUM 7.8 mg/dl (8.4-10.2); CREATININE 1.03 mg/dl (0.44-1.00); MAGNESIUM 1.8 mg/dl (1.7-2.5); PHOSPHORUS 1.9 mg/dl (2.5-4.9); POTASSIUM 3.5 mmol/L (3.5-5.1)
[2017-02-07] MEDS: SOD CHLORIDE 0.45% 1,000 ML IV SCH (05:50)
[2017-02-07 07:20] VITALS: BP 120/67; RESP 16
[2017-02-07] MEDS: KETOROLAC 15 MG INJ IV PRN ×2 (09:19→18:45)
[2017-02-07] MEDS: morphine 4 MG/ML VIAL IV PRN ×2 (11:09→15:20)
[2017-02-07 14:05] VITALS: BP 132/64; RESP 18
--- NOTE | 2017-02-07 17:06 | PN ---
Date/Time of Note Date/Time of Note DATE: 02/07/17 TIME: 17:04 Assessment/Plan VTE Prophylaxis VTE Prophylaxis Intervention: SCD's Lines/Catheters [facility] Per[facility] IV Assessment/Plan Chief Complaint/Hosp Course #1 Acute fractures of the right tibial and fibula Status post ORIF postop day #1 PT Patient will need placement in a rehab unit #2 Right lower cellulitis: Status post vancomycin and cefepime Blood cultures are negative #3 Normocytic anemia secondary to chronic disease and alcohol abuse Status post 2 units of PRBC Follow-up on stool occult blood #4 History of alcohol use Ativan PRN #5 Acute kidney injury secondary to dehydration-improved with IV fluids Continue IV fluids #6 Hypertension Resume home meds as able Prophylaxis: SCDs Problems: Subjective 24 Hr Interval Summary Constitutional: no complaints Exam/Review of Systems Vital Signs Vitals Vital Signs Date Time Temp Pulse Resp B/P Pulse Ox O2 Delivery O2 Flow Rate FiO2 02/07/17 14:05 98.0 100 18 132/64 98 02/07/17 00:00 Nasal Cannula 2.0 Intake and Output 02/06/17 02/06/17 02/07/17 15:00 23:00 07:00 Intake Total 100 ml 1900 ml 1050 ml Output Total 220 ml 300 ml Balance 100 ml 1680 ml 750 ml Exam Constitutional: alert, oriented Respiratory: clear to auscultation Cardiovascular: regular rate and rhythm Gastrointestinal: soft, No distended Musculoskeletal: No nl extremities to inspection Results Result Diagram: 02/07/17 0433 02/07/17 0433 Results 24 hrs Laboratory Tests Test 02/06/17 22:10 02/07/17 04:33 02/07/17 16:00 Urine Color YELLOW Urine Clarity CLEAR Urine pH 6.0 Urine Specific [place] 1.012 Urine Ketones NEGATIVE Urine Nitrite NEGATIVE Urine Bilirubin NEGATIVE Urine Urobilinogen NEGATIVE Urine Leukocyte Esterase NEGATIVE Urine Microscopic RBC 5 Urine Microscopic WBC 1 Urine Hemoglobin 1+ H Urine Glucose NEGATIVE Urine Total Protein 1+ H White Blood Count 5.9 # Red Blood Count 3.00 L Hemoglobin 9.2 L Hematocrit 28.6 L Mean Corpuscular Volume 95.3 Mean Corpuscular Hemoglobin 30.7 Mean Corpuscular Hemoglobin Concent 32.2 Red Cell Distribution Width 17.5 H Platelet Count 273 # Mean Platelet Volume 10.6 H Neutrophils % 64.6 Lymphocytes % 16.9 Monocytes % 14.7 H Eosinophils % 1.5 Basophils % 0.3 Nucleated Red Blood Cells % 0.0 Neutrophils # 3.8 Lymphocytes # 1.0 Monocytes # 0.9 Eosinophils # 0.1 Basophils # 0.0 Nucleated Red Blood Cells # 0.0 Sodium Level 142 Potassium Level 3.5 Chloride Level 112 H Carbon Dioxide Level 20 L Anion Gap 14 Blood Urea Nitrogen 16 Creatinine 1.03 H Glucose Level 94 Calcium Level 7.8 L Phosphorus Level 1.9 L Magnesium Level 1.8 Vancomycin Level Trough 10.0 Medications Medications Current Medications Ondansetron HCl (Zofran Inj) 4 mg Q6H PRN IV NAUSEA AND/OR VOMITING; Start 02/04/17 at 22:00 Acetaminophen (Tylenol Tab) 650 mg Q6H PRN PO PAIN LEVEL 1-3 OR FEVER Last administered on 02/07/17 07:45; Admin Dose 650 MG; Start 02/04/17 at 22:00 Morphine Sulfate (morphine) 2 mg Q4H PRN IV SEVERE PAIN LEVEL 7-10 Last administered on 02/05/17 18:04; Admin Dose 2 MG; Start 02/04/17 at 22:00 Zolpidem Tartrate (Ambien) 5 mg HS PRN PO INSOMNIA Last administered on 05:29; Admin Dose 5 MG; Start 02/05/17 at 05:30 Miscellaneous Information Patients own medicat... BID@10,16 XX ; Start 02/05/17 at 10:00 Lorazepam 1 mg 1 mg Q4H PRN IV AGITATION/ANXIETY Last administered on 14:32; Admin Dose 1 MG; Start 02/05/17 at 10:00 Cefepime HCl 50 ml @ 100 mls/hr Q12 IVPB Last administered on 02/06/17 09:13 ; Admin Dose 100 MLS/HR; Start 02/05/17 at 21:00; Status Future Hold Vancomycin HCl/ Dextrose/Water (Vancocin/D5W) 150 ml @ 75 mls/hr Q24H IVPB Last administered on 02/06/17 15:56; Admin Dose 75 MLS/HR; Start 02/05/17 at 17 :00 Pantoprazole 40 mg 40 mg DAILY@06 PO Last administered on 02/07/17 05:36; Admin Dose 40 MG; Start 02/05/17 at 16:00 Sodium Chloride (1/2 NS) 1,000 ml @ 75 mls/hr [id number] IV ; Start 02/06/17 at 16 :30 Morphine Sulfate (morphine) 2 mg Q2H PRN IV PAIN LEVEL 1-5; Start 02/06/17 at 23:00 Morphine Sulfate (morphine) 4 mg Q2H PRN IV PAIN LEVEL 6-10 Last administered on 02/07/17 15:20; Admin Dose 4 MG; Start 02/06/17 at 23:00 Ketorolac Tromethamine (Toradol) 15 mg Q6H PRN IV PAIN LEVEL 6-10 Last administered on 02/07/17 09:19; Admin Dose 15 MG; Start 02/06/17 at 23:00; Stop 02/09/17 at 22:59 Diphenhydramine HCl (Benadryl) 25 mg Q4H PRN IV PRURITUS; Start 02/06/17 at 23: 00 Nalbuphine HCl (Nubain) 10 mg Q4H PRN IV PRURITUS; Start 02/06/17 at 23:00 Ondansetron HCl (Zofran Inj) 4 mg Q6H PRN IV NAUSEA AND/OR VOMITING; Start 02/06/17 at 23:00 Trimethobenzamide HCl (Tigan) 200 mg Q6H PRN IM NAUSEA AND/OR VOMITING; Start 02/06/17 at 23:00 Naloxone HCl 0.2 mg 0.2 mg Q2M PRN IV FOR RESP RATE 8 OR LESS; Start 02/06/17 at 23:00 Dextrose/Sodium Chloride (D5-1/2ns) 1,000 ml @ 100 mls/hr Q10H IV Last administered on 02/07/17 09:17; Admin Dose 100 MLS/HR; Start 02/06/17 at 23:30 Morphine Sulfate (morphine) 3 mg Q2H PRN IV PAIN Last administered on 00:43; Admin Dose 3 MG; Start 02/06/17 at 23:30 Acetaminophen/ Hydrocodone Bitart ([place] (5/325)) 1 tab Q3H PRN PO PAIN Last administered on 02/07/17 02:26; Admin Dose 1 TAB; Start 11/6/17 at 23:30 Hydralazine HCl (Apresoline) 10 mg Q4H PRN IV ELEVATED BLOOD PRESSURE Last administered on 02/07/17 00:14; Admin Dose 10 MG; Start 02/07/17 at 00:30 Hydromorphone HCl (Dilaudid) 1 mg Q3H PRN IV PAIN Last administered on 04:17; Admin Dose 1 MG; Start 02/07/17 at 04:00 CONSUELO MORRIS Feb 07, 2017 17:06
[2017-02-07] MEDS: VANCOMYCIN 750 MG in DEXTROSE 5% 150 ML IVPB SCH (17:14)
[2017-02-07] MEDS ORDERED: POTASSIUM PHOSPHATE 40 MEQ in SOD CHLORIDE 0.9% 250 ML IVPB ONE ×2 (17:30→20:00)
[2017-02-07] MEDS: morphine 2 MG INJ IV PRN (20:50)
[2017-02-07 21:03] VITALS: BP 119/62; RESP 18
[2017-02-07] MEDS: ZOLPIDEM 5 MG TAB PO PRN (23:13)
[2017-02-08] VITALS (7 sets, daily range): BP systolic 128–172; BP diastolic 68–88; PULSE 101; RESP 17–20
[2017-02-08] MEDS: KETOROLAC 15 MG INJ IV PRN ×4 (02:30→23:36)
[2017-02-08] MEDS: DEXTROSE 5%-0.45% NACL 1,000 ML IV SCH ×4 (05:14→20:58)
[2017-02-08] MEDS: PANTOPRAZOLE (EC) 40 MG TAB PO SCH (05:16)
[2017-02-08 05:38] LABS: BASOPHILS % 0.4 % (0.0-2.0); EOSINOPHILS # 0.1 10^3/ul (0.0-0.5); EOSINOPHILS % 1.3 % (0.0-7.0); HEMATOCRIT 25.4 % (37.0-47.0); HEMOGLOBIN 8.2 g/dl (12.0-16.0); LYMPHOCYTES # 1.3 10^3/ul (0.8-2.9); LYMPHOCYTES % 16.9 % (15.0-51.0); MEAN CORPUSCULAR HEMOGLOBIN 30.6 pg (29.0-33.0); MEAN CORPUSCULAR HGB CONC 32.3 g/dl (32.0-37.0); MEAN CORPUSCULAR VOLUME 94.8 fl (82.0-101.0); MEAN PLATELET VOLUME 10.7 fl (7.4-10.4); MONOCYTE # 0.8 10^3/ul (0.3-0.9); MONOCYTES % 10.2 % (0.0-11.0); NEUTROPHIL # 5.5 10^3/ul (1.6-7.5); NEUTROPHILS % 70.3 % (39.0-77.0); PLATELET COUNT 295 10^3/UL (140-415); RED BLOOD COUNT 2.68 10^6/ul (4.20-5.40); WHITE BLOOD COUNT 7.8 10^3/ul (4.8-10.8)
[2017-02-08 06:01] LABS: CALCIUM 8.1 mg/dl (8.4-10.2); CREATININE 1.24 mg/dl (0.44-1.00); MAGNESIUM 1.7 mg/dl (1.7-2.5); PHOSPHORUS 3.9 mg/dl (2.5-4.9); POTASSIUM 4.4 mmol/L (3.5-5.1)
[2017-02-08] MEDS: morphine 2 MG INJ IV PRN ×3 (07:51→20:58)
[2017-02-08] MEDS: hydrALAzine 20 MG INJ IV PRN (08:52)
[2017-02-08] MEDS ORDERED: VANCOMYCIN 1 GM in NS 250 ML IVPB SCH (16:00)
--- NOTE | 2017-02-08 16:46 | PN ---
Date/Time of Note Date/Time of Note DATE: 02/08/17 TIME: 16:42 Assessment/Plan VTE Prophylaxis VTE Prophylaxis Intervention: SCD's Lines/Catheters IV Catheter Type (from Nrs): Peripheral IV Assessment/Plan Chief Complaint/Hosp Course #1 Acute fractures of the right tibial and fibula Status post ORIF postop day #2 PT Patient will need placement in a rehab unit #2 Right lower cellulitis: Status post vancomycin and cefepime Blood cultures are negative #3 Normocytic anemia secondary to chronic disease and alcohol abuse Status post 2 units of PRBC Follow-up on stool occult blood #4 History of alcohol use Ativan PRN #5 Acute kidney injury secondary to dehydration-improved with IV fluids Continue IV fluids #6 Hypertension Resume home meds Prophylaxis: SCDs Problems: Subjective 24 Hr Interval Summary Musculoskeletal: bone/joint pain Exam/Review of Systems Vital Signs Vitals Vital Signs Date Time Temp Pulse Resp B/P Pulse Ox O2 Delivery O2 Flow Rate FiO2 02/08/17 14:00 98.8 80 20 144/80 96 02/07/17 22:56 Nasal Cannula 2.0 Intake and Output 02/07/17 02/07/17 02/08/17 15:00 23:00 07:00 Intake Total 50 ml 2090 ml 1409.0909 ml Output Total 1000 ml 2000 ml Balance 50 ml 1090 ml -590.9091 ml Exam Constitutional: alert, oriented Respiratory: clear to auscultation Cardiovascular: regular rate and rhythm Gastrointestinal: soft, No distended Musculoskeletal: nl extremities to inspection Results Result Diagram: 02/08/17 0429 02/08/17 0429 Results 24 hrs Laboratory Tests Test 02/08/17 04:29 White Blood Count 7.8 # Red Blood Count 2.68 L Hemoglobin 8.2 L Hematocrit 25.4 L Mean Corpuscular Volume 94.8 Mean Corpuscular Hemoglobin 30.6 Mean Corpuscular Hemoglobin Concent 32.3 Red Cell Distribution Width 17.0 H Platelet Count 295 Mean Platelet Volume 10.7 H Neutrophils % 70.3 Lymphocytes % 16.9 Monocytes % 10.2 Eosinophils % 1.3 Basophils % 0.4 Nucleated Red Blood Cells % 0.0 Neutrophils # 5.5 Lymphocytes # 1.3 Monocytes # 0.8 Eosinophils # 0.1 Basophils # 0.0 Nucleated Red Blood Cells # 0.0 Sodium Level 142 Potassium Level 4.4 Chloride Level 114 H Carbon Dioxide Level 22 Anion Gap 10 Blood Urea Nitrogen 18 Creatinine 1.24 H Glucose Level 107 Calcium Level 8.1 L Phosphorus Level 3.9 # Magnesium Level 1.7 Medications Medications Current Medications Ondansetron HCl (Zofran Inj) 4 mg Q6H PRN IV NAUSEA AND/OR VOMITING; Start 02/04/17 at 22:00 Acetaminophen (Tylenol Tab) 650 mg Q6H PRN PO PAIN LEVEL 1-3 OR FEVER Last administered on 02/07/17 07:45; Admin Dose 650 MG; Start 02/04/17 at 22:00 Morphine Sulfate (morphine) 2 mg Q4H PRN IV SEVERE PAIN LEVEL 7-10 Last administered on 02/08/17 14:01; Admin Dose 2 MG; Start 02/04/17 at 22:00 Zolpidem Tartrate (Ambien) 5 mg HS PRN PO INSOMNIA Last administered on 23:13; Admin Dose 5 MG; Start 02/05/17 at 05:30 Miscellaneous Information Patients own medicat... BID@10,16 XX ; Start 02/05/17 at 10:00 Lorazepam (Ativan) 1 mg Q4H PRN IV AGITATION/ANXIETY Last administered on 14:32; Admin Dose 1 MG; Start 02/05/17 at 10:00 Pantoprazole (Protonix Tab) 40 mg DAILY@06 PO Last administered on 02/08/17 05 :16; Admin Dose 40 MG; Start 02/05/17 at 16:00 Morphine Sulfate (morphine) 2 mg Q2H PRN IV PAIN LEVEL 1-5; Start 02/06/17 at 23:00 Morphine Sulfate (morphine) 4 mg Q2H PRN IV PAIN LEVEL 6-10 Last administered on 02/07/17 15:20; Admin Dose 4 MG; Start 02/06/17 at 23:00 Ketorolac Tromethamine (Toradol) 15 mg Q6H PRN IV PAIN LEVEL 6-10 Last administered on 02/08/17 15:55; Admin Dose 15 MG; Start 02/06/17 at 23:00; Stop 02/09/17 at 22:59 Diphenhydramine HCl (Benadryl) 25 mg Q4H PRN IV PRURITUS; Start 02/06/17 at 23: 00 Nalbuphine HCl (Nubain) 10 mg Q4H PRN IV PRURITUS; Start 02/06/17 at 23:00 Ondansetron HCl (Zofran Inj) 4 mg Q6H PRN IV NAUSEA AND/OR VOMITING; Start 02/06/17 at 23:00 Trimethobenzamide HCl (Tigan) 200 mg Q6H PRN IM NAUSEA AND/OR VOMITING; Start 02/06/17 at 23:00 Naloxone HCl 0.2 mg 0.2 mg Q2M PRN IV FOR RESP RATE 8 OR LESS; Start 02/06/17 at 23:00 Dextrose/Sodium Chloride (D5-1/2ns) 1,000 ml @ 100 mls/hr Q10H IV Last administered on 02/08/17 14:23; Admin Dose 100 MLS/HR; Start 02/06/17 at 23:30 Morphine Sulfate (morphine) 3 mg Q2H PRN IV PAIN Last administered on 00:43; Admin Dose 3 MG; Start 02/06/17 at 23:30 Acetaminophen/ Hydrocodone Bitart ([place] (5/325)) 1 tab Q3H PRN PO PAIN Last administered on 02/07/17 02:26; Admin Dose 1 TAB; Start 02/06/17 at 23:30 Hydralazine HCl (Apresoline) 10 mg Q4H PRN IV ELEVATED BLOOD PRESSURE Last administered on 02/08/17 08:52; Admin Dose 10 MG; Start 02/07/17 at 00:30 Hydromorphone HCl (Dilaudid) 1 mg Q3H PRN IV PAIN Last administered on 04:17; Admin Dose 1 MG; Start 02/07/17 at 04:00 CONSUELO MORRIS Feb 08, 2017 16:46
[2017-02-08] MEDS: BENAZEPRIL 20 MG TAB PO SCH (18:06)
[2017-02-08] MEDS ORDERED: SENNA TAB PO ONE (22:30)
[2017-02-08] MEDS ORDERED: MAGNESIUM HYDROXIDE 30ML CUP PO ONE (22:30)
[2017-02-09 03:30] VITALS: BP 141/73; RESP 16
[2017-02-09] MEDS: morphine 2 MG INJ IV PRN ×2 (05:35→14:24)
[2017-02-09] MEDS: PANTOPRAZOLE (EC) 40 MG TAB PO SCH (05:35)
[2017-02-09 06:51] LABS: BASOPHIL # 0.1 10^3/ul (0.0-0.1); BASOPHILS % 0.5 % (0.0-2.0); EOSINOPHILS # 0.1 10^3/ul (0.0-0.5); EOSINOPHILS % 1.2 % (0.0-7.0); HEMATOCRIT 27.1 % (37.0-47.0); HEMOGLOBIN 8.9 g/dl (12.0-16.0); LYMPHOCYTES # 1.3 10^3/ul (0.8-2.9); LYMPHOCYTES % 13.2 % (15.0-51.0); MEAN CORPUSCULAR HEMOGLOBIN 31.6 pg (29.0-33.0); MEAN CORPUSCULAR HGB CONC 32.8 g/dl (32.0-37.0); MEAN CORPUSCULAR VOLUME 96.1 fl (82.0-101.0); MEAN PLATELET VOLUME 10.8 fl (7.4-10.4); MONOCYTE # 0.8 10^3/ul (0.3-0.9); MONOCYTES % 8.4 % (0.0-11.0); NEUTROPHIL # 7.1 10^3/ul (1.6-7.5); NEUTROPHILS % 72.8 % (39.0-77.0); PLATELET COUNT 392 10^3/UL (140-415); RED BLOOD COUNT 2.82 10^6/ul (4.20-5.40); WHITE BLOOD COUNT 9.8 10^3/ul (4.8-10.8)
[2017-02-09 07:21] LABS: CALCIUM 8.4 mg/dl (8.4-10.2); CREATININE 1.13 mg/dl (0.44-1.00); POTASSIUM 4.4 mmol/L (3.5-5.1)
[2017-02-09 07:54] VITALS: BP 166/86; RESP 17
[2017-02-09] MEDS: BENAZEPRIL 20 MG TAB PO SCH (09:08)
[2017-02-09] MEDS: SENNA TAB PO SCH ×2 (09:09→20:27)
[2017-02-09] MEDS: METOPROLOL (XL) 50 MG TAB PO SCH (09:15)
[2017-02-09] MEDS: KETOROLAC 15 MG INJ IV PRN ×3 (09:16→22:39)
[2017-02-09] MEDS: DEXTROSE 5%-0.45% NACL 1,000 ML IV SCH ×2 (09:21→20:25)
[2017-02-09 09:30] VITALS: BP 153/83; PULSE 88
[2017-02-09 14:20] VITALS: BP 162/91; PULSE 89; RESP 18
--- NOTE | 2017-02-09 15:23 | PN ---
Date/Time of Note Date/Time of Note DATE: 02/09/17 TIME: 15:21 Assessment/Plan VTE Prophylaxis VTE Prophylaxis Intervention: SCD's Lines/Catheters IV C[facility]ter Type (from [facility]): Peripheral IV Assessment/Plan Chief Complaint/Hosp Course #1 Acute fractures of the right tibial and fibula Status post ORIF postop day #3 PT Patient will need placement in a rehab unit #2 Right lower cellulitis: Status post vancomycin and cefepime Blood cultures are negative #3 Normocytic anemia secondary to chronic disease and alcohol abuse Status post 2 units of PRBC Follow-up on stool occult blood #4 History of alcohol use Ativan PRN #5 Acute kidney injury secondary to dehydration-improved with IV fluids s/p IV fluids #6 Hypertension Continue home meds Prophylaxis: SCDs Problems: Subjective 24 Hr Interval Summary Constitutional: no complaints Exam/Review of Systems Vital Signs Vitals Vital Signs Date Time Temp Pulse Resp B/P Pulse Ox O2 Delivery O2 Flow Rate FiO2 02/09/17 09:30 88 153/83 02/09/17 07:54 98.8 17 95 02/08/17 21:30 Room Air 02/07/17 22:56 2.0 Intake and Output 02/08/17 02/08/17 02/09/17 14:59 22:59 06:59 Intake Total 300 ml 1360 ml Output Total 1000 ml Balance 300 ml 360 ml Exam Constitutional: alert, oriented Respiratory: clear to auscultation Cardiovascular: regular rate and rhythm Gastrointestinal: soft, No distended Musculoskeletal: nl extremities to inspection Results Result Diagram: 02/09/17 0558 02/09/17 0558 Results 24 hrs Laboratory Tests Test 02/09/17 05:58 White Blood Count 9.8 # Red Blood Count 2.82 L Hemoglobin 8.9 L Hematocrit 27.1 L Mean Corpuscular Volume 96.1 Mean Corpuscular Hemoglobin 31.6 Mean Corpuscular Hemoglobin Concent 32.8 Red Cell Distribution Width 17.0 H Platelet Count 392 # Mean Platelet Volume 10.8 H Neutrophils % 72.8 Lymphocytes % 13.2 L Monocytes % 8.4 Eosinophils % 1.2 Basophils % 0.5 Nucleated Red Blood Cells % 0.0 Neutrophils # 7.1 Lymphocytes # 1.3 Monocytes # 0.8 Eosinophils # 0.1 Basophils # 0.1 Nucleated Red Blood Cells # 0.0 Sodium Level 142 Potassium Level 4.4 Chloride Level 111 H Carbon Dioxide Level 24 Anion Gap 11 Blood Urea Nitrogen 15 Creatinine 1.13 H Glucose Level 102 Calcium Level 8.4 Medications Medications Current Medications Ondansetron HCl (Zofran Inj) 4 mg Q6H PRN IV NAUSEA AND/OR VOMITING; Start 02/04/17 at 22:00 Acetaminophen (Tylenol Tab) 650 mg Q6H PRN PO PAIN LEVEL 1-3 OR FEVER Last administered on 02/07/17 07:45; Admin Dose 650 MG; Start 02/04/17 at 22:00 Morphine Sulfate (morphine) 2 mg Q4H PRN IV SEVERE PAIN LEVEL 7-10 Last administered on 02/09/17 14:24; Admin Dose 2 MG; Start 02/04/17 at 22:00 Zolpidem Tartrate (Ambien) 5 mg HS PRN PO INSOMNIA Last administered on 23:13; Admin Dose 5 MG; Start 02/05/17 at 05:30 Miscellaneous Information Patients own medicat... BID@10,16 XX ; Start 02/05/17 at 10:00 Lorazepam (Ativan) 1 mg Q4H PRN IV AGITATION/ANXIETY Last administered on 14:32; Admin Dose 1 MG; Start 02/05/17 at 10:00 Pantoprazole (Protonix Tab) 40 mg DAILY@06 PO Last administered on 02/09/17 05 :35; Admin Dose 40 MG; Start 02/05/17 at 16:00 Morphine Sulfate (morphine) 2 mg Q2H PRN IV PAIN LEVEL 1-5; Start 02/06/17 at 23:00 Morphine Sulfate (morphine) 4 mg Q2H PRN IV PAIN LEVEL 6-10 Last administered on 02/07/17 15:20; Admin Dose 4 MG; Start 02/06/17 at 23:00 Ketorolac Tromethamine (Toradol) 15 mg Q6H PRN IV PAIN LEVEL 6-10 Last administered on 02/09/17 09:16; Admin Dose 15 MG; Start 02/06/17 at 23:00; Stop 02/09/17 at 22:59 Diphenhydramine HCl (Benadryl) 25 mg Q4H PRN IV PRURITUS; Start 02/06/17 at 23: 00 Nalbuphine HCl (Nubain) 10 mg Q4H PRN IV PRURITUS; Start 02/06/17 at 23:00 Ondansetron HCl (Zofran Inj) 4 mg Q6H PRN IV NAUSEA AND/OR VOMITING; Start 02/06/17 at 23:00 Trimethobenzamide HCl (Tigan) 200 mg Q6H PRN IM NAUSEA AND/OR VOMITING; Start 02/06/17 at 23:00 Naloxone HCl 0.2 mg 0.2 mg Q2M PRN IV FOR RESP RATE 8 OR LESS; Start 02/06/17 at 23:00 Dextrose/Sodium Chloride (D5-1/2ns) 1,000 ml @ 100 mls/hr Q10H IV Last administered on 02/09/17 09:21; Admin Dose 100 MLS/HR; Start 02/06/17 at 23:30 Morphine Sulfate (morphine) 3 mg Q2H PRN IV PAIN Last administered on 00:43; Admin Dose 3 MG; Start 02/06/17 at 23:30 Acetaminophen/ Hydrocodone Bitart ([place] (5/325)) 1 tab Q3H PRN PO PAIN Last administered on 02/07/17 02:26; Admin Dose 1 TAB; Start 02/06/17 at 23:30 Hydralazine HCl (Apresoline) 10 mg Q4H PRN IV ELEVATED BLOOD PRESSURE Last administered on 02/08/17 08:52; Admin Dose 10 MG; Start 02/07/17 at 00:30 Hydromorphone HCl (Dilaudid) 1 mg Q3H PRN IV PAIN Last administered on 04:17; Admin Dose 1 MG; Start 02/07/17 at 04:00 Benazepril HCl (Lotensin) 20 mg DAILY PO Last administered on 02/09/17 09:08; Admin Dose 20 MG; Start 02/08/17 at 17:00 Metoprolol Succinate (Toprol Xl) 50 mg DAILY PO Last administered on 02/09/17 09:15; Admin Dose 50 MG; Start 02/09/17 at 09:00 Senna (Senokot) 2 tab BID PO Last administered on 02/09/17 09:09; Admin Dose 2 TAB; Start 02/09/17 at 09:00 Magnesium Hydroxide (Milk Of Mag) 30 ml DAILY PRN PO CONSTIPATION; Start at 22:30 CONSUELO MORRIS Feb 09, 2017 15:23
[2017-02-09] MEDS: hydrALAzine 20 MG INJ IV PRN (15:24)
[2017-02-09 16:00] VITALS: BP 149/89
[2017-02-09] MEDS: MAGNESIUM HYDROXIDE 30ML CUP PO PRN (17:04)
[2017-02-09] MEDS: morphine 4 MG/ML VIAL IV PRN (20:29)
[2017-02-09 21:12] VITALS: BP 164/75; RESP 16
[2017-02-10] MEDS: morphine 4 MG/ML VIAL IV PRN ×3 (00:21→20:13)
[2017-02-10 02:51] VITALS: BP 136/84; RESP 16
[2017-02-10] MEDS: PANTOPRAZOLE (EC) 40 MG TAB PO SCH (05:07)
[2017-02-10] MEDS: HYDROmorphONE 1 MG/ML SYG IV PRN ×3 (05:07→12:13)
[2017-02-10] MEDS: DEXTROSE 5%-0.45% NACL 1,000 ML IV SCH ×2 (05:11→15:37)
[2017-02-10 06:44] LABS: BASOPHILS % 0.2 % (0.0-2.0); EOSINOPHILS # 0.2 10^3/ul (0.0-0.5); EOSINOPHILS % 1.6 % (0.0-7.0); HEMATOCRIT 30.2 % (37.0-47.0); HEMOGLOBIN 9.5 g/dl (12.0-16.0); LYMPHOCYTES # 1.5 10^3/ul (0.8-2.9); LYMPHOCYTES % 11.7 % (15.0-51.0); MEAN CORPUSCULAR HEMOGLOBIN 30.6 pg (29.0-33.0); MEAN CORPUSCULAR HGB CONC 31.5 g/dl (32.0-37.0); MEAN CORPUSCULAR VOLUME 97.4 fl (82.0-101.0); MEAN PLATELET VOLUME 10.6 fl (7.4-10.4); MONOCYTE # 0.9 10^3/ul (0.3-0.9); MONOCYTES % 6.9 % (0.0-11.0); NEUTROPHIL # 9.4 10^3/ul (1.6-7.5); NEUTROPHILS % 76.4 % (39.0-77.0); PLATELET COUNT 473 10^3/UL (140-415); WHITE BLOOD COUNT 12.4 10^3/ul (4.8-10.8)
[2017-02-10 07:11] LABS: CALCIUM 8.7 mg/dl (8.4-10.2); CREATININE 1.05 mg/dl (0.44-1.00); MAGNESIUM 2.1 mg/dl (1.7-2.5); POTASSIUM 4.7 mmol/L (3.5-5.1)
[2017-02-10 08:00] VITALS: BP 165/80; RESP 20
[2017-02-10] MEDS: BENAZEPRIL 20 MG TAB PO SCH (08:30)
[2017-02-10] MEDS: SENNA TAB PO SCH ×2 (08:30→20:13)
[2017-02-10] MEDS: METOPROLOL (XL) 50 MG TAB PO SCH (08:30)
[2017-02-10] MEDS: MAGNESIUM HYDROXIDE 30ML CUP PO PRN (13:49)
[2017-02-10 14:00] VITALS: BP 152/60; RESP 20
--- NOTE | 2017-02-10 18:05 | PN ---
Date/Time of Note Date/Time of Note DATE: 02/10/17 TIME: 18:03 Assessment/Plan VTE Prophylaxis VTE Prophylaxis Intervention: SCD's Lines/Catheters IV C[facility]ter Type (from [facility]): Peripheral IV Assessment/Plan Chief Complaint/Hosp Course #1 Acute fractures of the right tibial and fibula Status post ORIF postop day #4 PT Patient will need placement in a rehab unit, placement pending #2 Right lower cellulitis: Status post vancomycin and cefepime Blood cultures are negative #3 Normocytic anemia secondary to chronic disease and alcohol abuse Status post 2 units of PRBC Follow-up on stool occult blood #4 History of alcohol use Ativan PRN #5 Acute kidney injury secondary to dehydration-improved with IV fluids s/p IV fluids #6 Hypertension Continue home meds Prophylaxis: SCDs Problems: Subjective 24 Hr Interval Summary Constitutional: no complaints Exam/Review of Systems Vital Signs Vitals Vital Signs Date Time Temp Pulse Resp B/P Pulse Ox O2 Delivery O2 Flow Rate FiO2 02/10/17 14:00 98.6 88 20 152/60 96 02/09/17 14:20 Room Air 02/07/17 22:56 2.0 Intake and Output 02/09/17 02/09/17 02/10/17 15:00 23:00 07:00 Intake Total 200 ml 1580 ml 1340 ml Output Total 650 ml 1300 ml Balance 200 ml 930 ml 40 ml Exam Constitutional: alert, oriented Respiratory: clear to auscultation Cardiovascular: regular rate and rhythm Gastrointestinal: soft, No distended Musculoskeletal: nl extremities to inspection Results Result Diagram: 02/10/17 0536 02/10/17 0536 Results 24 hrs Laboratory Tests Test 02/10/17 05:36 White Blood Count 12.4 #H Red Blood Count 3.10 L Hemoglobin 9.5 L Hematocrit 30.2 L Mean Corpuscular Volume 97.4 Mean Corpuscular Hemoglobin 30.6 Mean Corpuscular Hemoglobin Concent 31.5 L Red Cell Distribution Width 17.0 H Platelet Count 473 #H Mean Platelet Volume 10.6 H Neutrophils % 76.4 Lymphocytes % 11.7 L Monocytes % 6.9 Eosinophils % 1.6 Basophils % 0.2 Nucleated Red Blood Cells % 0.0 Neutrophils # 9.4 H Lymphocytes # 1.5 Monocytes # 0.9 Eosinophils # 0.2 Basophils # 0.0 Nucleated Red Blood Cells # 0.0 Sodium Level 140 Potassium Level 4.7 Chloride Level 108 Carbon Dioxide Level 27 Anion Gap 10 Blood Urea Nitrogen 14 Creatinine 1.05 H Glucose Level 104 Calcium Level 8.7 Magnesium Level 2.1 Medications Medications Current Medications Ondansetron HCl (Zofran Inj) 4 mg Q6H PRN IV NAUSEA AND/OR VOMITING; Start 02/04/17 at 22:00 Acetaminophen (Tylenol Tab) 650 mg Q6H PRN PO PAIN LEVEL 1-3 OR FEVER Last administered on 02/07/17 07:45; Admin Dose 650 MG; Start 02/04/17 at 22:00 Morphine Sulfate (morphine) 2 mg Q4H PRN IV SEVERE PAIN LEVEL 7-10 Last administered on 02/09/17 14:24; Admin Dose 2 MG; Start 02/04/17 at 22:00 Zolpidem Tartrate (Ambien) 5 mg HS PRN PO INSOMNIA Last administered on 23:13; Admin Dose 5 MG; Start 02/05/17 at 05:30 Miscellaneous Information Patients own medicat... BID@10,16 XX ; Start 02/05/17 at 10:00 Lorazepam (Ativan) 1 mg Q4H PRN IV AGITATION/ANXIETY Last administered on 14:32; Admin Dose 1 MG; Start 02/05/17 at 10:00 Pantoprazole (Protonix Tab) 40 mg DAILY@06 PO Last administered on 02/10/17 05:07; Admin Dose 40 MG; Start 02/05/17 at 16:00 Morphine Sulfate (morphine) 2 mg Q2H PRN IV PAIN LEVEL 1-5; Start 02/06/17 at 23:00 Morphine Sulfate (morphine) 4 mg Q2H PRN IV PAIN LEVEL 6-10 Last administered on 02/10/17 15:38; Admin Dose 4 MG; Start 02/06/17 at 23:00 Diphenhydramine HCl (Benadryl) 25 mg Q4H PRN IV PRURITUS; Start 02/06/17 at 23: 00 Nalbuphine HCl (Nubain) 10 mg Q4H PRN IV PRURITUS; Start 02/06/17 at 23:00 Ondansetron HCl (Zofran Inj) 4 mg Q6H PRN IV NAUSEA AND/OR VOMITING; Start 02/06/17 at 23:00 Trimethobenzamide HCl (Tigan) 200 mg Q6H PRN IM NAUSEA AND/OR VOMITING; Start 02/06/17 at 23:00 Naloxone HCl 0.2 mg 0.2 mg Q2M PRN IV FOR RESP RATE 8 OR LESS; Start 02/06/17 at 23:00 Dextrose/Sodium Chloride (D5-1/2ns) 1,000 ml @ 100 mls/hr Q10H IV Last administered on 02/10/17 15:37; Admin Dose 100 MLS/HR; Start 02/06/17 at 23:30 Morphine Sulfate (morphine) 3 mg Q2H PRN IV PAIN Last administered on 00:43; Admin Dose 3 MG; Start 02/06/17 at 23:30 Acetaminophen/ Hydrocodone Bitart ([place] (5/325)) 1 tab Q3H PRN PO PAIN Last administered on 02/07/17 02:26; Admin Dose 1 TAB; Start 02/06/17 at 23:30 Hydralazine HCl (Apresoline) 10 mg Q4H PRN IV ELEVATED BLOOD PRESSURE Last administered on 02/09/17 15:24; Admin Dose 10 MG; Start 02/07/17 at 00:30 Benazepril HCl (Lotensin) 20 mg DAILY PO Last administered on 02/10/17 08:30 ; Admin Dose 20 MG; Start 02/08/17 at 17:00 Metoprolol Succinate (Toprol Xl) 50 mg DAILY PO Last administered on 08:30; Admin Dose 50 MG; Start 02/09/17 at 09:00 Senna (Senokot) 2 tab BID PO Last administered on 02/10/17 08:30; Admin Dose 2 TAB; Start 02/09/17 at 09:00 Magnesium Hydroxide (Milk Of Mag) 30 ml DAILY PRN PO CONSTIPATION Last administered on 02/10/17 13:49; Admin Dose 30 ML; Start 02/08/17 at 22:30 CONSUELO MORRIS Feb 10, 2017 18:05
[2017-02-10] MEDS: morphine 2 MG INJ IV PRN ×2 (18:28→23:26)
[2017-02-10 20:51] VITALS: BP 181/85; RESP 20
[2017-02-10] MEDS: hydrALAzine 20 MG INJ IV PRN (21:17)
[2017-02-10] MEDS: ACETAMINOPHEN 325 MG TAB PO PRN (21:17)
[2017-02-10 23:04] VITALS: BP 98/61; PULSE 103
[2017-02-10 23:06] VITALS: BP 143/88; PULSE 103
[2017-02-11] MEDS: morphine 4 MG/ML VIAL IV PRN ×4 (02:23→17:50)
[2017-02-11] MEDS: DEXTROSE 5%-0.45% NACL 1,000 ML IV SCH ×3 (02:28→23:24)
[2017-02-11 02:49] VITALS: BP 148/72; RESP 18
[2017-02-11] MEDS: morphine 2 MG INJ IV PRN ×3 (03:58→19:59)
[2017-02-11 05:46] LABS: BASOPHILS % 0.3 % (0.0-2.0); EOSINOPHILS # 0.1 10^3/ul (0.0-0.5); EOSINOPHILS % 1.3 % (0.0-7.0); HEMATOCRIT 28.3 % (37.0-47.0); LYMPHOCYTES # 1.4 10^3/ul (0.8-2.9); LYMPHOCYTES % 13.9 % (15.0-51.0); MEAN CORPUSCULAR HEMOGLOBIN 30.9 pg (29.0-33.0); MEAN CORPUSCULAR HGB CONC 31.8 g/dl (32.0-37.0); MEAN CORPUSCULAR VOLUME 97.3 fl (82.0-101.0); MEAN PLATELET VOLUME 10.6 fl (7.4-10.4); MONOCYTE # 1.1 10^3/ul (0.3-0.9); MONOCYTES % 10.2 % (0.0-11.0); NEUTROPHIL # 7.4 10^3/ul (1.6-7.5); NEUTROPHILS % 71.8 % (39.0-77.0); PLATELET COUNT 446 10^3/UL (140-415); RED BLOOD COUNT 2.91 10^6/ul (4.20-5.40); WHITE BLOOD COUNT 10.4 10^3/ul (4.8-10.8)
[2017-02-11] MEDS: PANTOPRAZOLE (EC) 40 MG TAB PO SCH (06:08)
[2017-02-11 06:18] LABS: CALCIUM 8.6 mg/dl (8.4-10.2); CREATININE 0.98 mg/dl (0.44-1.00); POTASSIUM 4.1 mmol/L (3.5-5.1)
[2017-02-11 08:00] VITALS: BP 163/77; RESP 20
[2017-02-11] MEDS: SENNA TAB PO SCH ×2 (08:34→20:04)
[2017-02-11] MEDS: BENAZEPRIL 20 MG TAB PO SCH (08:35)
[2017-02-11] MEDS: METOPROLOL (XL) 50 MG TAB PO SCH (08:35)
[2017-02-11] MEDS: HYDROCODONE/APAP (5/325) TAB PO PRN (12:49)
--- NOTE | 2017-02-11 13:12 | PN ---
Date/Time of Note Date/Time of Note DATE: 02/11/17 TIME: 13:12 Assessment/Plan VTE Prophylaxis VTE Prophylaxis Intervention: SCD's Lines/Catheters IV [facility]ter Type (from [facility]): Peripheral IV Urinary Cath still in place: No Assessment/Plan Chief Complaint/Hosp Course #1 Acute fractures of the right tibial and fibula Status post ORIF postop day #4 PT Patient will need placement in a rehab unit, placement pending #2 Right lower cellulitis: Status post vancomycin and cefepime Blood cultures are negative #3 Normocytic anemia secondary to chronic disease and alcohol abuse Status post 2 units of PRBC Follow-up on stool occult blood #4 History of alcohol use Ativan PRN #5 Acute kidney injury secondary to dehydration-improved with IV fluids s/p IV fluids #6 Hypertension Continue home meds Prophylaxis: SCDs Problems: Subjective 24 Hr Interval Summary Constitutional: no complaints Exam/Review of Systems Vital Signs Vitals Vital Signs Date Time Temp Pulse Resp B/P Pulse Ox O2 Delivery O2 Flow Rate FiO2 02/11/17 08:00 98.8 90 20 163/77 96 02/09/17 14:20 Room Air 02/07/17 22:56 2.0 Intake and Output 02/10/17 02/10/17 02/11/17 14:59 22:59 06:59 Intake Total 1705 ml 1590 ml Output Total 1400 ml 1000 ml Balance 305 ml 590 ml Exam Constitutional: alert, oriented Respiratory: clear to auscultation Cardiovascular: regular rate and rhythm Gastrointestinal: soft, No distended Musculoskeletal: nl extremities to inspection Results Result Diagram: 02/11/17 0423 02/11/17 0423 Results 24 hrs Laboratory Tests Test 02/11/17 04:23 White Blood Count 10.4 Red Blood Count 2.91 L Hemoglobin 9.0 L Hematocrit 28.3 L Mean Corpuscular Volume 97.3 Mean Corpuscular Hemoglobin 30.9 Mean Corpuscular Hemoglobin Concent 31.8 L Red Cell Distribution Width 16.0 H Platelet Count 446 H Mean Platelet Volume 10.6 H Neutrophils % 71.8 Lymphocytes % 13.9 L Monocytes % 10.2 Eosinophils % 1.3 Basophils % 0.3 Nucleated Red Blood Cells % 0.0 Neutrophils # 7.4 Lymphocytes # 1.4 Monocytes # 1.1 H Eosinophils # 0.1 Basophils # 0.0 Nucleated Red Blood Cells # 0.0 Sodium Level 141 Potassium Level 4.1 Chloride Level 105 Carbon Dioxide Level 28 Anion Gap 12 Blood Urea Nitrogen 13 Creatinine 0.98 Glucose Level 104 Calcium Level 8.6 Medications Medications Current Medications Ondansetron HCl (Zofran Inj) 4 mg Q6H PRN IV NAUSEA AND/OR VOMITING; Start 02/04/17 at 22:00 Acetaminophen (Tylenol Tab) 650 mg Q6H PRN PO PAIN LEVEL 1-3 OR FEVER Last administered on 02/10/17 21:17; Admin Dose 650 MG; Start 02/04/17 at 22:00 Morphine Sulfate (morphine) 2 mg Q4H PRN IV SEVERE PAIN LEVEL 7-10 Last administered on 02/11/17 08:35; Admin Dose 2 MG; Start 02/04/17 at 22:00 Zolpidem Tartrate (Ambien) 5 mg HS PRN PO INSOMNIA Last administered on 23:13; Admin Dose 5 MG; Start 02/05/17 at 05:30 Miscellaneous Information Patients own medicat... BID@10,16 XX ; Start 02/05/17 at 10:00 Lorazepam (Ativan) 1 mg Q4H PRN IV AGITATION/ANXIETY Last administered on 14:32; Admin Dose 1 MG; Start 02/05/17 at 10:00 Pantoprazole (Protonix Tab) 40 mg DAILY@06 PO Last administered on 02/11/17 06:08; Admin Dose 40 MG; Start 02/05/17 at 16:00 Morphine Sulfate (morphine) 2 mg Q2H PRN IV PAIN LEVEL 1-5; Start 02/06/17 at 23:00 Morphine Sulfate (morphine) 4 mg Q2H PRN IV PAIN LEVEL 6-10 Last administered on 02/11/17 11:00; Admin Dose 4 MG; Start 02/06/17 at 23:00 Diphenhydramine HCl (Benadryl) 25 mg Q4H PRN IV PRURITUS; Start 02/06/17 at 23: 00 Nalbuphine HCl (Nubain) 10 mg Q4H PRN IV PRURITUS; Start 02/06/17 at 23:00 Ondansetron HCl (Zofran Inj) 4 mg Q6H PRN IV NAUSEA AND/OR VOMITING; Start 02/06/17 at 23:00 Trimethobenzamide HCl (Tigan) 200 mg Q6H PRN IM NAUSEA AND/OR VOMITING; Start 02/06/17 at 23:00 Naloxone HCl 0.2 mg 0.2 mg Q2M PRN IV FOR RESP RATE 8 OR LESS; Start 02/06/17 at 23:00 Dextrose/Sodium Chloride (D5-1/2ns) 1,000 ml @ 100 mls/hr Q10H IV Last administered on 02/11/17 02:28; Admin Dose 100 MLS/HR; Start 02/06/17 at 23:30 Morphine Sulfate (morphine) 3 mg Q2H PRN IV PAIN Last administered on 00:43; Admin Dose 3 MG; Start 02/06/17 at 23:30 Acetaminophen/ Hydrocodone Bitart ([place] (5/325)) 1 tab Q3H PRN PO PAIN Last administered on 02/11/17 12:49; Admin Dose 1 TAB; Start 02/06/17 at 23:30 Hydralazine HCl (Apresoline) 10 mg Q4H PRN IV ELEVATED BLOOD PRESSURE Last administered on 02/10/17 21:17; Admin Dose 10 MG; Start 02/07/17 at 00:30 Benazepril HCl (Lotensin) 20 mg DAILY PO Last administered on 02/11/17 08:35 ; Admin Dose 20 MG; Start 02/08/17 at 17:00 Metoprolol Succinate (Toprol Xl) 50 mg DAILY PO Last administered on 08:35; Admin Dose 50 MG; Start 02/09/17 at 09:00 Senna (Senokot) 2 tab BID PO Last administered on 02/11/17 08:34; Admin Dose 2 TAB; Start 02/09/17 at 09:00 Magnesium Hydroxide (Milk Of Mag) 30 ml DAILY PRN PO CONSTIPATION Last administered on 02/10/17 13:49; Admin Dose 30 ML; Start 02/08/17 at 22:30 CONSUELO MORRIS Feb 11, 2017 13:12
[2017-02-11 14:00] VITALS: BP 153/79; RESP 18
[2017-02-11 19:34] VITALS: BP 179/86; RESP 18
[2017-02-11 20:30] VITALS: BP 156/95; PULSE 99
[2017-02-11] MEDS: KETOROLAC 15 MG INJ IV PRN (21:44)
[2017-02-11] MEDS: ZOLPIDEM 5 MG TAB PO PRN (23:22)
[2017-02-12 01:56] VITALS: BP 174/84; RESP 18
[2017-02-12] MEDS: hydrALAzine 20 MG INJ IV PRN (03:32)
[2017-02-12] MEDS: KETOROLAC 15 MG INJ IV PRN ×3 (03:39→16:21)
[2017-02-12 05:15] VITALS: BP 148/89; PULSE 94
[2017-02-12] MEDS: PANTOPRAZOLE (EC) 40 MG TAB PO SCH (05:36)
[2017-02-12 07:15] VITALS: BP 179/87; RESP 18
[2017-02-12] MEDS: SENNA TAB PO SCH ×3 (08:10→20:06)
[2017-02-12] MEDS: BENAZEPRIL 20 MG TAB PO SCH (08:10)
[2017-02-12] MEDS: METOPROLOL (XL) 50 MG TAB PO SCH (08:10)
[2017-02-12] MEDS: morphine 2 MG INJ IV PRN ×2 (08:11→13:07)
[2017-02-12] MEDS: DEXTROSE 5%-0.45% NACL 1,000 ML IV SCH (10:18)
[2017-02-12 10:25] VITALS: BP 152/76; PULSE 102
[2017-02-12 14:00] VITALS: BP 155/74; RESP 16
[2017-02-12] MEDS: HYDROCODONE/APAP (5/325) TAB PO PRN (15:19)
--- NOTE | 2017-02-12 18:38 | PN ---
Date/Time of Note Date/Time of Note DATE: 02/12/17 TIME: 18:37 Assessment/Plan VTE Prophylaxis VTE Prophylaxis Intervention: SCD's Lines/Catheters IV Catheter Type (from [facility]): Peripheral IV Urinary Cath still in place: No Assessment/Plan Chief Complaint/Hosp Course #1 Acute fractures of the right tibial and fibula Status post ORIF postop day #5 PT Patient will need placement in a rehab unit, placement pending #2 Right lower cellulitis: Status post vancomycin and cefepime Blood cultures are negative #3 Normocytic anemia secondary to chronic disease and alcohol abuse Status post 2 units of PRBC Follow-up on stool occult blood #4 History of alcohol use Ativan PRN #5 Acute kidney injury secondary to dehydration-improved with IV fluids s/p IV fluids #6 Hypertension Continue home meds Prophylaxis: SCDs Problems: Subjective 24 Hr Interval Summary Constitutional: no complaints Exam/Review of Systems Vital Signs Vitals Vital Signs Date Time Temp Pulse Resp B/P Pulse Ox O2 Delivery O2 Flow Rate FiO2 02/12/17 14:00 98.8 88 16 155/74 92 02/09/17 14:20 Room Air Intake and Output 02/11/17 02/11/17 02/12/17 15:00 23:00 07:00 Intake Total 700 ml 1080 ml 2020 ml Balance 700 ml 1080 ml 2020 ml Exam Constitutional: alert, oriented Respiratory: clear to auscultation Cardiovascular: regular rate and rhythm Gastrointestinal: soft, No distended Musculoskeletal: nl extremities to inspection Results Result Diagram: 02/11/17 0423 02/11/17 042 Medications Medications Current Medications Ondansetron HCl (Zofran Inj) 4 mg Q6H PRN IV NAUSEA AND/OR VOMITING; Start 02/04/17 at 22:00 Acetaminophen (Tylenol Tab) 650 mg Q6H PRN PO PAIN LEVEL 1-3 OR FEVER Last administered on 02/10/17 21:17; Admin Dose 650 MG; Start 02/04/17 at 22:00 Morphine Sulfate (morphine) 2 mg Q4H PRN IV SEVERE PAIN LEVEL 7-10 Last administered on 02/12/17 13:07; Admin Dose 2 MG; Start 02/04/17 at 22:00 Zolpidem Tartrate (Ambien) 5 mg HS PRN PO INSOMNIA Last administered on 23:22; Admin Dose 5 MG; Start 02/05/17 at 05:30 Miscellaneous Information Patients own medicat... BID@10,16 XX ; Start 02/05/17 at 10:00 Lorazepam (Ativan) 1 mg Q4H PRN IV AGITATION/ANXIETY Last administered on 14:32; Admin Dose 1 MG; Start 02/05/17 at 10:00 Pantoprazole (Protonix Tab) 40 mg DAILY@06 PO Last administered on 02/12/17 05:36; Admin Dose 40 MG; Start 02/05/17 at 16:00 Morphine Sulfate (morphine) 3 mg Q2H PRN IV PAIN Last administered on 00:43; Admin Dose 3 MG; Start 02/06/17 at 23:30 Acetaminophen/ Hydrocodone Bitart ([place] (5/325)) 1 tab Q3H PRN PO PAIN Last administered on 02/12/17 15:19; Admin Dose 1 TAB; Start 02/06/17 at 23:30 Hydralazine HCl (Apresoline) 10 mg Q4H PRN IV ELEVATED BLOOD PRESSURE Last administered on 02/12/17 03:32; Admin Dose 10 MG; Start 02/07/17 at 00:30 Benazepril HCl (Lotensin) 20 mg DAILY PO Last administered on 02/12/17 08:10 ; Admin Dose 20 MG; Start 02/08/17 at 17:00 Metoprolol Succinate (Toprol Xl) 50 mg DAILY PO Last administered on 08:10; Admin Dose 50 MG; Start 02/09/17 at 09:00 Senna (Senokot) 2 tab BID PO Last administered on 02/12/17 08:10; Admin Dose 2 TAB; Start 02/09/17 at 09:00 Magnesium Hydroxide (Milk Of Mag) 30 ml DAILY PRN PO CONSTIPATION Last administered on 02/10/17 13:49; Admin Dose 30 ML; Start 02/08/17 at 22:30 Ketorolac Tromethamine (Toradol) 15 mg Q6H PRN IV PAIN Last administered on 16:21; Admin Dose 15 MG; Start 02/11/17 at 21:30; Stop 02/14/17 at 21: 29 CONSUELO MORRIS Feb 12, 2017 18:38
[2017-02-12 19:29] VITALS: BP 114/65; RESP 20
[2017-02-13 01:54] VITALS: BP 159/83; RESP 20
[2017-02-13] MEDS: PANTOPRAZOLE (EC) 40 MG TAB PO SCH (06:09)
[2017-02-13] MEDS: morphine 2 MG INJ IV PRN (06:23)
[2017-02-13 07:34] VITALS: BP 168/82; RESP 20
[2017-02-13] MEDS: BENAZEPRIL 20 MG TAB PO SCH (08:00)
[2017-02-13] MEDS: SENNA TAB PO SCH ×2 (08:00→21:10)
[2017-02-13] MEDS: METOPROLOL (XL) 50 MG TAB PO SCH (08:01)
[2017-02-13] MEDS: KETOROLAC 15 MG INJ IV PRN (08:01)
[2017-02-13] MEDS: NACL 0.9% 3 ML SYG IV SCH ×2 (08:01→14:40)
[2017-02-13 13:50] VITALS: BP 154/78; RESP 20
[2017-02-13] MEDS: hydrALAzine 20 MG INJ IV PRN (14:39)
[2017-02-13] MEDS ORDERED: NALOXONE (0.4 MG/ML) INJ ONE (15:02)
--- NOTE | 2017-02-13 15:06 | PN ---
Date/Time of Note Date/Time of Note DATE: 02/13/17 TIME: 14:48 Assessment/Plan VTE Prophylaxis VTE Prophylaxis Intervention: LMWH Lines/Catheters IV [facility]from [facility] [place] Urinary Cath still in place: No Assessment/Plan Assessment/Plan 1. Altered mental status, r/o stroke, given narcan if no improvement will do CT head, echo, carotid, tele, neurology consult 2. Right tibial and fibula fracture, Status post ORIF on 02/06/2017, awaiting for SNF placement, continue PT 3. Normocytic anemia secondary to chronic disease and alcohol abuse, Status post 2 units of PRBC 4. History of alcohol use, no symptoms of withdrawal 5. Acute kidney injury secondary to dehydration-improved with IV fluids 6. Hypertension 7. Right lower cellulitis, treated 8. Prophylaxis: lovenox Subjective 24 Hr Interval Summary Free Text/Dictation reported started slurred speech and difficulty in waking up by the nurse, states awake and walked with PT at noon time or so. Exam/Review of Systems Vital Signs Vitals Vital Signs Date Time Temp Pulse Resp B/P Pulse Ox O2 Delivery O2 Flow Rate FiO2 02/13/17 13:50 99.0 109 20 154/78 93 02/09/17 14:20 Room Air Intake and Output 02/12/17 02/12/17 02/13/17 14:59 22:59 06:59 Intake Total 780 ml 200 ml Output Total 4 ml Balance 780 ml 196 ml Exam Constitutional: other (confused, ) Head: atraumatic, normocephalic Eyes: EOMI, PERRL, nl conjunctiva, nl lids, nl sclera ENMT: nl external ears & nose, nl lips & teeth, nl nasal mucosa & septum Neck: non-tender, supple Respiratory: clear to auscultation, normal air movement, No congested cough, No crackles/rales, No diminished breath sounds, No intercostal retraction, No labored breathing, No other, No respirations, No tactile fremitus, No wheezing Cardiovascular: nl pulses, regular rate and rhythm, No S3, No S4, No bruits, No diastolic murmur, No edema, No gallop, No irregular rhythm, No jugular venous distention (JVD), No murmurs/extra sounds, No other, No rub, No systolic murmur Gastrointestinal: nl liver, spleen, non-tender, soft, No ascites, No bowel sounds, No distended, No firm, No hepatomegaly, No mass , No other, No rebound or guarding, No splenomegaly, No surgical scars, No tender Musculoskeletal: nl extremities to inspection Extremities: normal pulses, other (right lower extremity s/p surgery) Neurological: confused, other (weakness on right side, slurring speech) Results Result Diagram: 02/11/1742202/11/17 042 Results 24 hrs Laboratory Tests Test 02/13/17 14:38 Bedside Glucose 106 Medications Medications Current Medications Ondansetron HCl (Zofran Inj) 4 mg Q6H PRN IV NAUSEA AND/OR VOMITING; Start 02/04/17 at 22:00 Acetaminophen (Tylenol Tab) 650 mg Q6H PRN PO PAIN LEVEL 1-3 OR FEVER Last administered on 02/10/17 21:17; Admin Dose 650 MG; Start 02/04/17 at 22:00 Morphine Sulfate (morphine) 2 mg Q4H PRN IV SEVERE PAIN LEVEL 7-10 Last administered on 02/13/17 06:23; Admin Dose 2 MG; Start 02/04/17 at 22:00 Zolpidem Tartrate (Ambien) 5 mg HS PRN PO INSOMNIA Last administered on 23:22; Admin Dose 5 MG; Start 02/05/17 at 05:30 Miscellaneous Information Patients own medicat... BID@10,16 XX ; Start 02/05/17 at 10:00 Lorazepam (Ativan) 1 mg Q4H PRN IV AGITATION/ANXIETY Last administered on 14:32; Admin Dose 1 MG; Start 02/05/17 at 10:00 Pantoprazole (Protonix Tab) 40 mg DAILY@06 PO Last administered on 02/13/17 06:09; Admin Dose 40 MG; Start 02/05/17 at 16:00 Morphine Sulfate (morphine) 3 mg Q2H PRN IV PAIN Last administered on 00:43; Admin Dose 3 MG; Start 02/06/17 at 23:30 Acetaminophen/ Hydrocodone Bitart ([place] (5/325)) 1 tab Q3H PRN PO PAIN Last administered on 02/12/17 15:19; Admin Dose 1 TAB; Start 02/06/17 at 23:30 Hydralazine HCl (Apresoline) 10 mg Q4H PRN IV ELEVATED BLOOD PRESSURE Last administered on 02/13/17 14:39; Admin Dose 10 MG; Start 02/07/17 at 00:30 Benazepril HCl (Lotensin) 20 mg DAILY PO Last administered on 02/13/17 08:00 ; Admin Dose 20 MG; Start 02/08/17 at 17:00 Metoprolol Succinate (Toprol Xl) 50 mg DAILY PO Last administered on 08:01; Admin Dose 50 MG; Start 02/09/17 at 09:00 Senna (Senokot) 2 tab BID PO Last administered on 02/13/17 08:00; Admin Dose 2 TAB; Start 02/09/17 at 09:00 Magnesium Hydroxide (Milk Of Mag) 30 ml DAILY PRN PO CONSTIPATION Last administered on 02/10/17 13:49; Admin Dose 30 ML; Start 02/08/17 at 22:30 Ketorolac Tromethamine (Toradol) 15 mg Q6H PRN IV PAIN Last administered on 08:01; Admin Dose 15 MG; Start 02/11/17 at 21:30; Stop 02/14/17 at 21: 29 CROW SNOW MD Feb 13, 2017 14:58
[2017-02-13] MEDS ORDERED: NALOXONE (0.4 MG/ML) INJ IV PRN (15:30)
[2017-02-13 15:35] LABS: Allen Test ACCEPTAB; Arterial Base Excess 2.4 mmol/L (-3.0-3); Arterial COHb 0.2 % (0.0-3.0); Arterial Fraction of Oxyhgb 97.3 % (93.0-99.0); Arterial HCO3 24.5 mmol/L (22.0-26.0); Arterial MetHb 0.1 % (0.0-1.5); Arterial Total Hemglobin 10.1 g/dl (12.0-18.0); MODE NASAL CANNULA
--- NOTE | 2017-02-13 15:56 | RADRPT ---
PROCEDURE: CT BRAIN WITHOUT CONTRAST. CLINICAL INDICATION: Altered level of consciousness with confusion TECHNIQUE: A CT of the brain was performed on a multidetector high-resolution CT scanner utilizing axial imaging from the skull base through the vertex without IV contrast. Multiplanar reformatted images were made. Images were reviewed on a PACS workstation. The CTDIvol is 44.9 mGy and the DLP is 720.2 mGycm. One or more of the following dose reduction techniques were used: - Automated exposure control. - Adjustment of the mA and/or kV according to patient size. - Use of iterative reconstruction technique. DICOM images are available. COMPARISON: None FINDINGS: The posterior fossa structures are unremarkable. The lori, midbrain, and medulla appear to be with n ormal limits. There is no evidence of acute intracranial hemorrhage, infarct, or extra-axial fluid collection. No gross mass effect or midline shift. Cerebral sulci, cisternal spaces, and ventricles are prominent. Mild periventricular/subcortical white matter lucencies are identified.. The visualized paranasal sinuses are clear. The mastoid air cells are well-aerated. The calvarium is unremarkable. IMPRESSION: 1. No evidence of acute intracranial hemorrhage, infarct, or extra-axial fluid collection. 2. Cortical atrophy and mild periventricular/subcortical white matter changes, likely consistent wit h chronic microvascular angiopathy . RPTAT: AAPP Physician Leia Date Time Electronically viewed and signed by Physician Leia on 02/13/2017 15:55 PEG/
[2017-02-13] MEDS: ENOXAPARIN 40 MG/0.4 ML SYG SC SCH (16:13)
[2017-02-13 20:54] VITALS: BP 130/73; RESP 21
[2017-02-13 23:49] LABS: ADD UMIC NO; UR ASCORBIC ACID NEGATIVE (NEGATIVE); UR BILIRUBIN (Dip) NEGATIVE (NEGATIVE); UR BLOOD (Dip) NEGATIVE (NEGATIVE); UR CLARITY CLEAR (CLEAR); UR COLOR YELLOW (YELLOW); UR GLUCOSE (Dip) NEGATIVE (NEGATIVE); UR KETONES (Dip) NEGATIVE (NEGATIVE); UR LEUKOCYTE ESTERASE (Dip) NEGATIVE Leu/ul (NEGATIVE); UR NITRITE (Dip) NEGATIVE (NEGATIVE); UR SPECIFIC GRAVITY (Dip) 1.006 (1.003-1.030); UR TOTAL PROTEIN (Dip) NEGATIVE (NEGATIVE); UR UROBILINOGEN (Dip) NEGATIVE (NEGATIVE)
[2017-02-14] MEDS ORDERED: KETOROLAC 30 MG INJ IV STA (01:23)
[2017-02-14] MEDS ORDERED: GUAIFENESIN 20 MG/ML 5ML CUP PO ONE (01:30)
[2017-02-14] MEDS ORDERED: morphine 2 MG INJ IV ONE (01:30)
[2017-02-14] MEDS: hydrALAzine 20 MG INJ IV PRN ×2 (03:19→19:54)
[2017-02-14 03:21] VITALS: BP 175/89; RESP 19
[2017-02-14] MEDS: PANTOPRAZOLE (EC) 40 MG TAB PO SCH (05:39)
[2017-02-14 05:41] LABS: BASOPHIL # 0.1 10^3/ul (0.0-0.1); BASOPHILS % 0.4 % (0.0-2.0); EOSINOPHILS # 0.1 10^3/ul (0.0-0.5); EOSINOPHILS % 1.1 % (0.0-7.0); HEMOGLOBIN 8.6 g/dl (12.0-16.0); LYMPHOCYTES # 1.7 10^3/ul (0.8-2.9); LYMPHOCYTES % 14.8 % (15.0-51.0); MEAN CORPUSCULAR HEMOGLOBIN 31.3 pg (29.0-33.0); MEAN CORPUSCULAR HGB CONC 33.1 g/dl (32.0-37.0); MEAN CORPUSCULAR VOLUME 94.5 fl (82.0-101.0); MEAN PLATELET VOLUME 11.1 fl (7.4-10.4); MONOCYTE # 0.7 10^3/ul (0.3-0.9); MONOCYTES % 6.5 % (0.0-11.0); NEUTROPHIL # 8.5 10^3/ul (1.6-7.5); NEUTROPHILS % 75.9 % (39.0-77.0); PLATELET COUNT 636 10^3/UL (140-415); RED BLOOD COUNT 2.75 10^6/ul (4.20-5.40); RED CELL DISTRIBUTION WIDTH 15.6 % (11.5-14.5); WHITE BLOOD COUNT 11.2 10^3/ul (4.8-10.8)
[2017-02-14 06:32] LABS: CALCIUM 8.9 mg/dl (8.4-10.2); CREATININE 1.11 mg/dl (0.44-1.00); POTASSIUM 4.3 mmol/L (3.5-5.1)
[2017-02-14 08:08] VITALS: BP 129/67; RESP 19
[2017-02-14] MEDS: METOPROLOL (XL) 50 MG TAB PO SCH (08:12)
[2017-02-14] MEDS: SENNA TAB PO SCH (08:12)
[2017-02-14] MEDS: ENOXAPARIN 40 MG/0.4 ML SYG SC SCH (08:13)
[2017-02-14] MEDS ORDERED: BENAZEPRIL 40 MG TAB PO SCH (09:00)
[2017-02-14] MEDS: ACETAMINOPHEN 325 MG TAB PO PRN (09:46)
[2017-02-14 14:37] VITALS: BP 133/77; RESP 16
[2017-02-14] MEDS ORDERED: ENOX40DI12 SC (15:00)
[2017-02-14] MEDS ORDERED: HYDR-3498 PO (15:00)
--- NOTE | 2017-02-14 15:10 | DS ---
Date/Time of Note Date/Time of Note DATE: 02/14/17 TIME: 15:01 Discharge Summary Admission/Discharge Info Admit Date/Time Feb 04, 2017 at 18:41 Discharge Date/Time Discharge Diagnosis 1. Right tibial and fibula fracture, Status post ORIF on 02/06/2017, awaiting for SNF placement, continue PT 2. transient acute enphalopathy from morphine, resolved after narcan 3. Normocytic anemia secondary to chronic disease and alcohol abuse, Status post 2 units of PRBC 4. History of alcohol use, no symptoms of withdrawal 5. Acute kidney injury secondary to dehydration-improved 6. Hypertension, controlled 7. Right lower cellulitis, treated 8. Prophylaxis: lovenox Patient Condition: Stable Hx of Present Illness This is a 66-year-old alcoholic. She is here for pain and swelling and redness in her right leg. The patient states on Monday, 4 days ago, she tried to flick off a spider that had bitten her just below her knee and when she did this she twisted her right ankle. She says since that time she has been unable to bear weight on her right leg is gotten more red and swollen over the past 4 days. She did not hit her head although she has a bruise under her right eye she says that is from a fall 3-4 weeks ago. She is not having any headaches no neck pain does not know if she has had a fever but no chills. She has pain in the right ankle mostly and also pain in the right leg below the knee. There is redness and swelling no dyspnea or shortness of breath. Patient says she has been getting around her apartment by crawling. Hospital Course X-ray revealed an acute obliquely oriented fracture of the mid tibial shaft with posterior displacement 1/2 shaft width and mild varus angulation. There is a comminuted obliquely oriented fracture of the distal fibula with medial and posterior displacement a full shaft width. Patient got ORIF for the fractures on 02/07/2017. She got right lower extremity cellulitis that is fully treated with antibiotics. No DVT per US. Patient was found lethargic, slurring on 02/13/2017, after a unremarkable morning and physical therapy. CT scan head unremarkable. Patient got one dose of 0.2 mg narcan then she woke up indicating it was narcotic related. Morphine is stopped. Patient is full alert and oriented today without focal deficit. Home Meds Active Scripts Hydrocodone Bit-Acetaminophen (Hydrocodone Bit-APAP) 5-325MG Tablet, 1 TAB PO Q3H Y for PAIN, #10 TAB Prov:CROW SNOW MD 02/14/17 Enoxaparin Sodium (Enoxaparin Sodium) 40 Mg/0.4 Ml Syringe, 40 MG SC DAILY for 10 Days Prov:CROW SNOW MD 02/14/17 Reported Medications Metoprolol Succinate* (Toprol XL*) 50 Mg Tab.er.24h, 50 MG PO DAILY, #30 TAB 01/29/17 Benazepril Hcl* (Benazepril Hcl*) 20 Mg Tablet, 20 MG PO DAILY, #30 TAB 01/29/17 Follow-up Plan PCP in one week Dr. Edmondson ortho in one week Primary Care Provider Romie Marshall MD Pending Labs Laboratory Tests Test 02/13/17 15:07 02/13/17 23:30 02/14/17 04:30 Blood Gas Specimen Source Blood arterial Arterial Blood Date Drawn 02/13/2017 3:20:46 PM Arterial Blood pH (Temp corrected) 7.544 (7.350-7.450) Arterial Blood pCO2 (Temp correct) 29.0mmhg (35-45) Arterial Blood pO2 (Temp corrected) 95.2mmHG (80-100.0) Arterial Blood HCO3 24.5mmol/L (22.0-26.0) Arterial Blood Base Excess 2.4mmol/L (-3.0-3) Arterial Blood Oxygen Saturation 97.6mmHG (95.0-98.0) Rakesh Test ACCEPTAB Arterial Blood Gas Puncture Site Left Radial Arterial Blood Carboxyhemoglobin 0.2% (0.0-3.0) Arterial Blood Methemoglobin 0.1% (0.0-1.5) Blood Gas A-a O2 Differential 63.0mmHg (7.0-24.0) Oxyhemoglobin Percent 97.3% (93.0-99.0) Total Hemoglobin 10.1g/dl (12.0-18.0) Blood Gas Temperature 37.0C Blood Gas Modality NASAL CANNULA FiO2 27.0% Blood Gas Notified Whom JLD Blood Gas Notified Time 02/13/2017 3:35:24 PM Urine Color YELLOW (YELLOW) Urine Clarity CLEAR (CLEAR) Urine pH 7.0 (5.0-9.0) Urine Specific [place] 1.006 (1.003-1.030) Urine Ketones NEGATIVEmg/dL (NEGATIVE) Urine Nitrite NEGATIVEmg/dL (NEGATIVE) Urine Bilirubin NEGATIVEmg/dL (NEGATIVE) Urine Urobilinogen NEGATIVEmg/dL (NEGATIVE) Urine Leukocyte Esterase NEGATIVELeu/ul (NEGATIVE) Urine Hemoglobin NEGATIVEmg/dL (NEGATIVE) Urine Glucose NEGATIVEmg/dL (NEGATIVE) Urine Total Protein NEGATIVEmg/dl (NEGATIVE) White Blood Count 11.210^3/ul (4.8-10.8) Red Blood Count 2.7510^6/ul (4.20-5.40) Hemoglobin 8.6g/dl (12.0-16.0) Hematocrit 26.0% (37.0-47.0) Mean Corpuscular Volume 94.5fl (82.0-101.0) Mean Corpuscular Hemoglobin 31.3pg (29.0-33.0) Mean Corpuscular Hemoglobin Concent 33.1g/dl (32.0-37.0) Red Cell Distribution Width 15.6% (11.5-14.5) Platelet Count 86089^3/UL (140-415) Mean Platelet Volume 11.1fl (7.4-10.4) Neutrophils % 75.9% (39.0-77.0) Lymphocytes % 14.8% (15.0-51.0) Monocytes % 6.5% (0.0-11.0) Eosinophils % 1.1% (0.0-7.0) Basophils % 0.4% (0.0-2.0) Nucleated Red Blood Cells % 0.0/100WBC (0.0-0.0) Neutrophils # 8.510^3/ul (1.6-7.5) Lymphocytes # 1.710^3/ul (0.8-2.9) Monocytes # 0.710^3/ul (0.3-0.9) Eosinophils # 0.110^3/ul (0.0-0.5) Basophils # 0.110^3/ul (0.0-0.1) Nucleated Red Blood Cells # 0.010^3/ul (0.0-0.0) Sodium Level 144mmol/L (135-144) Potassium Level 4.3mmol/L (3.5-5.1) Chloride Level 107mmol/L (97-110) Carbon Dioxide Level 30mmol/L (21-31) Anion Gap 11 (8-16) Blood Urea Nitrogen 19mg/dl (7-20) Creatinine 1.11mg/dl (0.44-1.00) Glucose Level 103mg/dl (70-220) Calcium Level 8.9mg/dl (8.4-10.2) CROW SNOW MD Feb 14, 2017 15:10
--- NOTE | 2017-02-14 15:27 | RADRPT ---
PROCEDURE: XR Chest. CLINICAL INDICATION: Shortness of breath TECHNIQUE: Single portable view of the chest was obtained COMPARISON: May 26, 2015 FINDINGS: The trachea is midline. The cardiac silhouette is enlarged and pulmonary vascularity are within norm al limits. The lungs are clear. The costophrenic angles are sharp. IMPRESSION: 1. Cardiomegaly. No evidence of acute cardiopulmonary disease. RPTAT: AAPP Physician Leia Date Time Electronically viewed and signed by Emile Mohr Physician on 02/14/2017 15:27 JL/
[2017-02-14] MEDS: HYDROCODONE/APAP (5/325) TAB PO PRN ×2 (15:54→18:37)
== END 2017-02-14 20:16 | DRG 492 ==
LOC: E/R 16:11 → PP2 18:41
PROVIDERS: ADMIT Internal Medicine; ATTEND Internal Medicine
PROC: 30233N1 Transfusion of Nonautologous Red Blood Cells into Peripheral Vein, Percutaneous Approach (ICD-10-PCS; 2017-02-05)
PROC: 0QSG06Z Reposition Right Tibia with Intramedullary Internal Fixation Device, Open Approach (ICD-10-PCS; principal; 2017-02-06 20:30)
DX: S82.241A Displaced spiral fracture of shaft of right tibia, initial encounter for closed fracture (principal); G92 Toxic encephalopathy; N17.9 Acute kidney failure, unspecified; L03.115 Cellulitis of right lower limb; S82.441A Displaced spiral fracture of shaft of right fibula, initial encounter for closed fracture; I10 Essential (primary) hypertension; D63.8 Anemia in other chronic diseases classified elsewhere; E86.0 Dehydration; X50.9XXA Other and unspecified overexertion or strenuous movements or postures, initial encounter; T40.2X5A Adverse effect of other opioids, initial encounter; Y92.239 Unspecified place in hospital as the place of occurrence of the external cause; F10.20 Alcohol dependence, uncomplicated
CPT/HCPCS: 36430; 36600; 70450; 71010; 73560; 73590; 76775; 80048; 80053; 80061; 80202; 80306; 80307; 81001; 81003; 82565; 82728; 82803; 82962; 83010; 83036; 83540; 83615; 83735; 83930; 83935; 84100; 84443; 84466; 84484; 84520; 85025; 85610; 85730; 86078; 86850; 86900; 86901; 86920; 87040; 87086; 93306; 93971; 96374; 96375; 97110; 97116; 97162; 97530; A4310; C1713; J0360; J0690; J0692; J1170; J1650; J1885; J2060; J2250; J2270; J2274; J2310; J2405; J3370; J3475; J7030; J7042; J7050; P9016

== ENCOUNTER 2017-03-31 11:23 | Inpatient (IN) | END 2017-04-04 16:55 | disposition home health service (06) | DRG 493 ==